=== PATIENT | male | born 1965 | race Caucasian/White ===

== ENCOUNTER 2017-03-17 08:34 | Inpatient (IN) | payer OTHER ==
[2017-03-17] MEDS ORDERED: ONDANSETRON 4 MG/2 ML VIAL IVP ONE (09:16)
[2017-03-17] MEDS ORDERED: NS 500 ML IV ONE ×2 (09:18→11:30)
--- NOTE | 2017-03-17 09:23 | EDPHY ---
H & P Time Seen by Provider: 03/17/17 08:52 HPI/ROS: HPI Confusion, abdomen swollen. 52-year-old male by private vehicle with and son. Patient has a history of non-Hodgkin's lymphoma. This was diagnosed in 1999. He had a stem cell transplant in 2000. He was considered cancer free after that. He has not been on any chemotherapy in some time. He currently takes no prescription medications. On Monday he noticed that his abdomen was swelling. He stated that it felt like a basketball and felt distended. He denied significant pain in the abdomen. He reports that since Monday he has felt progressively more confused. Last night he got up to go to the bathroom and while at the bathroom door felt lightheaded and fell to the ground. He thinks he lost consciousness for a brief amount of time. No associated chest pain, palpitations, headache, shortness of breath with this event. He denies any headache at this time. No neck pain. No numbness or weakness in his extremities. He woke this morning and was jaundiced. This is new as of this morning according to his . His states that he seems more confused and slow to respond to questioning as well. He had an episode of vomiting, nonbilious, nonbloody Monday night. ROS: Constitutional: No fever, no chills. As above. Eyes: No discharge. No changes in vision. ENT: No sore throat. No nasal congestion or rhinorrhea. Respiratory: No cough. No shortness of breath. Cardiac: No chest pain, no palpitations. Gastrointestinal: As above, no diarrhea. Genitourinary: No hematuria. No dysuria or increased frequency with urination. Musculoskeletal: No back pain. No neck pain. No myalgias or arthralgias. Skin: No rashes. As above. Neurological: No headache. No focal weakness or altered sensation. Past medical history: As above. His primary care physician is Dr. Martínez. He has been treated at [facility] in the past. Social history: Nonsmoker. No alcohol. Here with and son. Physical Exam: General Appearance: Alert, jaundice. This patient is responding to questions in full sentences. He is somewhat slow to respond but answers questions appropriately. He generally appears well-hydrated and well-nourished. Eyes: Pupils equal and round no pallor or injection. Scleral icterus present. No lid edema, erythema or injection. ENT, Mouth: Mucous membranes and tongue are are dry. The pharyngeal tissues are unremarkable. No edema or swelling. No asymmetry suggestive of abscess. No erythema or exudates. Respiratory: There are no retractions, lungs are clear to auscultation anteriorly with good air movement bilaterally. Cardiovascular: Regular rate and rhythm. No murmur. Gastrointestinal: Abdomen is distended but soft and without significant tenderness on palpation, no masses, bowel sounds normal. No focal tenderness at McBurney's point. No Napier sign. Neurological: Motor sensory function is grossly intact. Cranial nerves are normal. Gait is normal. Skin: Warm and dry, no rashes. Musculoskeletal: Neck is supple and nontender. Extremities are symmetrical. No lower extremity edema. All joints range without pain or impingement. Psychiatric: No agitation. No depression. Database: EKG: EKG time is 9:20 a.m.; EKG shows a narrow complex sinus tachycardia with a ventricular rate of 107. The DE, QRS, intervals are within normal limits. QT interval prolonged. T-wave inversions noted in the anterior leads. Interpreted by me. Imaging: Chest x-ray AP portable; the cardiac mediastinal silhouette is unremarkable. No evidence of infiltrate or pneumothorax. No acute cardiopulmonary disease process noted. Poor inspiration with bibasilar compressive changes. Interpreted by me. CT head without contrast; negative. Results were discussed with staff radiologist Dr. Dawson Carter. CT abdomen and pelvis with out contrast; significant for markedly fatty liver and severe pancreatitis. Results were discussed with staff radiologist Dr. Dawson Carter. Procedures: Emergency department course: IV placed. He was placed on a monitor. He was started on IV normal saline with 1L to be given over the next hour. Vital signs have been reviewed. He is tachycardic in triage at 1:19 a.m.. Afebrile. Blood pressure is normal. Discussed likely admission with family. 10:55 a.m., discussed case with on-call hospitalist. Patient accepted for admission to Dr. Mcgill. Hospitalist agrees with holding antibiotics in the emergency department. We do not feel that patient's presentation is secondary to infectious etiology at this time. IV fluids continued. 11:00 a.m., discussed results of diagnostic tests with patient and family. All of their questions were answered. Repeat lactate 5.4. Patient admitted in stable condition. Differential Diagnosis: The differential diagnosis on this patient includes but is not limited to malignancy, acute hepatitis, infectious disorder/sepsis, anemia, dehydration. This represents a partial list of diagnoses considered. These considerations are based on history, physical exam, past history, reassessment and diagnostic testing. Smoking Status: Never smoked Constitutional: Initial Vital Signs Temperature (C) 36.5 C 03/17/17 08:40 Heart Rate 119 H 03/17/17 08:40 Respiratory Rate 16 03/17/17 08:40 Blood Pressure 122/74 H 03/17/17 08:40 O2 Sat (%) 96 03/17/17 08:40 O2 Delivery Mode Room Air Allergies/Adverse Reactions: No Known Allergies Allergy (Unverified 10/22/11 11:33) Home Medications: Medication Instructions Recorded Herbals/Supplements -Info Only 1 ea PO DAILY 08/14/09 Temazepam [Restoril 15 MG (*)] 15 mg PO HSPRN PRN 03/17/17 Zolpidem Tartrate [Ambien 5MG (*)] 10 mg PO HS PRN 03/17/17 Medical Decision Making - Data Points Laboratory Results: Laboratory Results 03/17/17 09:07 03/17/17 09:07 Medications Given: Discontinued Medications Sodium Chloride (Ns) 500 mls @ 0 mls/hr IV ONCE ONE PRN Reason: As Directed Stop: 03/17/17 09:19 Last Admin: 03/17/17 09:26 Dose: 500 mls Sodium Chloride (Ns) 500 mls @ 0 mls/hr IV ONCE ONE PRN Reason: Wide Open Stop: 03/17/17 11:31 Last Admin: 03/17/17 11:30 Dose: 500 mls Thiamine HCl 500 mg/ Sodium (Chloride) 105 mls @ 210 mls/hr IV ONCE ONE Stop: 03/17/17 15:29 Last Admin: 03/17/17 15:03 Dose: 105 mls Magnesium Sulfate (Magnesium Sulf 2 Gm (Premix)) 50 mls @ 50 mls/hr IV ONCE ONE Stop: 03/18/17 10:01 Last Admin: 03/18/17 10:40 Dose: 50 mls Calcium Gluconate 2 gm/ Sodium (Chloride) 70 mls @ 140 mls/hr IV ONCE ONE Stop: 03/18/17 09:46 Last Admin: 03/18/17 09:52 Dose: 70 mls Ondansetron HCl (Zofran) 4 mg IVP EDNOW ONE Stop: 03/17/17 09:17 Last Admin: 03/17/17 09:38 Dose: 4 mg Potassium Chloride (Klor-Con) 10 - 40 meq PO ONCE ONE PRN Reason: Protocol Stop: 03/18/17 08:12 Last Admin: 03/18/17 09:56 Dose: 40 meq Departure - Departure Disposition: [facility] Acute Clinical Impression: Dehydration, Altered mental status, Syncope, Jaundice, Thrombocytopenia, Hyperbilirubinemia, Transaminitis, Hyponatremia, Renal failure, Pancreatitis, Metabolic acidosis, Probable hepatic encephalopathy
[2017-03-17 09:25] LABS: ABSOLUTE IMMATURE GRANULOCYTES 0.29 10^3/uL (0.00-0.10); ABSOLUTE NRBC COUNT 0.33 10^3/uL (0-0.01); ADD DIFF? NO; ADD MORPH? YES; ADD SCAN? NO; ATYPICAL LYMPHOCYTE FLAG 0 (0-99); FRAGMENT RBC FLAG 0 (0-99); HEMATOCRIT 38.2 % (40.0-51.0); LEFT SHIFT FLG 40 (0-99); LIPEMIA HEMOLYSIS FLAG 90 (0-99); MEAN CELL HEMOGLOBIN 39.3 pg (27.9-34.1); MEAN CELL HEMOGLOBIN CONCENTR. 36.6 g/dL (32.4-36.7); MEAN CELL VOLUME 107.3 fL (81.5-99.8); MEAN PLATELET VOLUME 12.2 fL (8.7-11.7); PLATELET CLUMPS FLAG 0 (0-99); PLATELET COUNT 91 10^3/uL (150-400); RED BLOOD CELL COUNT 3.56 10^6/uL (4.40-6.38); RED CELL DISTRIBUTION WIDTH 14.6 % (11.5-15.2)
[2017-03-17 09:27] LABS: NRBC-AUTO% 3.4 % (0.0-0.2)
[2017-03-17] MEDS ORDERED: IOPAMIDOL (ISOVUE-300) 100 ML BTL ONE (09:27)
[2017-03-17 09:35] LABS: ALANINE AMINOTRANSFERASE 145 IU/L (21-72); ALBUMIN 4.4 g/dL (3.5-5.0); ALKALINE PHOSPHATASE 167 IU/L (38-126); ANION GAP 28 mEq/L (8-16); ASPARTATE AMINOTRANSFERASE 260 IU/L (17-59); BILIRUBIN,TOTAL 15.3 mg/dL (0.1-1.4); BILIRUBIN-CONJUGATED 13.5 mg/dL (0.0-0.5); BILIRUBIN-UNCONJUGATED 1.8 mg/dL (0.0-1.1); CALCIUM 7.4 mg/dL (8.5-10.4); CARBON DIOXIDE 16 mEq/l (22-31); CHLORIDE 81 mEq/L (97-110); CREATININE 3.3 mg/dL (0.7-1.3); GLOMERULAR FILTRATION RATE 20; GLUCOSE 183 mg/dL (70-100); POTASSIUM 3.2 mEq/L (3.5-5.2); SODIUM 125 mEq/L (134-144); TOTAL PROTEIN 6.3 g/dL (6.3-8.2)
[2017-03-17 09:37] LABS: INR 1.2 (0.83-1.16); PROTIME(PATIENT) 15.2 SEC (12.0-15.0)
[2017-03-17 09:38] LABS: APTT 28.4 SEC (23.0-38.0)
[2017-03-17 09:57] LABS: MACROCYTES 2+; PLATELET ESTIMATE DECREASED (ADEQ); POLYCHROMASIA 1+; TOXIC GRANULATION PRESENT
[2017-03-17] MEDS ORDERED: ONDANSETRON 4 MG/2 ML VIAL IVP PRN (13:13)
[2017-03-17] MEDS ORDERED: HYDROmorphONE/DILAUDID 1 MG/ML SYR IVP PRN (13:18)
--- NOTE | 2017-03-17 13:37 | PDGENHP ---
History and Physical History and Physical: HISTORY AND PHYSICAL CC:Confusion falling and abdominal bloating HISTORY: Mr. Gould who is an alcohol drinker comes in with 2 days of progressive confusion, difficulty with speech, gait instability with a fall at home, and mildly uncomfortable abdominal bloating. He did have 1 episode of vomiting 2 nights ago. There is no fever, there is no diarrhea or constipation. His appetite is decreased. His notes him to be very slow in conversation and have trouble answering certain questions. She also notices speech is slightly slurred or changed in quality. He did not apparently injure himself for this fall. There is no fever, no chest discomfort no cough no leg swelling or leg pain. He does notice that it is hard to take a deep breath but is not painful to take a deep breath. This morning he has noted that he has jaundice and his notices this as well. He has no previous history of abdominal illnesses, renal failure, liver illnesses other than being told he had some slightly abnormal liver blood tests. He has no known history of hepatitis virus infections or jaundice. He has never had known gallstones, has no known family history of pancreatitis. There is no family history of liver disease. He does drink [employer] and he says it takes him around 4 days to drink a half gallon. last alcohol drink approximately [address] ROS: A comprehensive 10 system review revealed no other significant findings PAST MEDICAL HISTORY: Non-Hodgkin's lymphoma was diagnosed in 1999 and treated with chemotherapy followed by stem cell transplant in 2000. He has been in remission since that time. Dr. Michael Winston is his oncologist. Alcoholism FAMILY MEDICAL HISTORY: no family history of pancreas liver or kidney diseases SOCIAL HISTORY: and lives with his and 3 children. His is here with him now and very supportive. Alcohol use is described above MEDICATIONS: rarely takes an Ambien to sleep at night PHYSICAL EXAMINATION: Vital Signs: tachycardia but good blood pressure normal respirations normal oxygen saturation and no fever Front Sight Attacher: sinus rhythm Examination: General: alert, conversant, with some mild disorientation but otherwise good mentation. He is calm and relaxed. no tremor, no hallucinations. His speech is remarkable for a very mild slurring but otherwise articulate. His affect is appropriate. He is very cooperative and interactive for examination and history taking. No focal weakness. Pupils are normal Skin: significant for marked jaundice, warm, dry, no rash HEENT: normal no sign of injury Neck: no mass or jvd Resps: relaxed Lungs: clear breath sounds Heart: regular, no murmur Abdomen: soft, distended, only very mildly tender with no rebound or guarding, +BS, no mass Upper Extremities: normal Lower Extremities: no edema, warm No Bleeding or bruising LABORATORY DATA: lipase greater than 3000 AST 260 ALT 145 Alk Ph 167 Bili 15 with conj 13 Na 125, K 3.2 Plt 91k MCV 107 RADIOLOGY STUDIES: CT scan of abd pelvis, my review of images and interpretation: Severe diffuse pancreatitis associated with diffuse frankie and fluid collections in peritoneal fat of abdomen and pelvis. There is no sign of necrosis or pseudocyst. No ascites. Liver enlarged and with changes c/w either hepatitis or fatty infiltration. 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 Lynn and Dr. Ghosh to assist in the care of this patient -[facility] protocol -Thiamin replacement -DVT prophylaxis as long as his platelets remain in good range; three times daily heparin as he has renal failure - I spent a considerable amount of time with the patient and his at the bedside reviewing the diagnoses and complications there seen and the possible further complications as well as prognosis, as well as our treatment and further evaluations and monitoring that need to occur. I have discussed in detail that this is primarily likely all alcohol-induced and that as this is life threatening and organ threatening, he really needs to have already had his last drink of alcohol in many do everything possible to help him stay away from any alcohol in the future and they both hear that and agree with it. I have reviewed the patient's case in detail with Dr. Lynn and Davina I have reviewed the patient's past medical records as part of this assessment, including previous laboratory data and hospital admission records
[2017-03-17] MEDS ORDERED: THIAMINE HCL 500 MG in NS 100 ML IM ONE (14:00)
[2017-03-17] MEDS: NS 1,000 ML IV SCH ×2 (14:15→20:40)
[2017-03-17] MEDS: HEPARIN 5,000 UNIT/0.5 ML SYR SC SCH ×2 (14:16→20:39)
[2017-03-17] MEDS ORDERED: THIAMINE HCL 500 MG in NS 100 ML IV ONE (15:00)
--- NOTE | 2017-03-17 16:21 | GCON ---
[f rep st] CONSULTATION GASTROENTEROLOGY INPATIENT CONSULTATION DATE OF CONSULTATION: 03/17/2017 CHIEF COMPLAINT: I was kindly requested to see the patient in consultation by Dr. Konrad Mcgill for a chief complaint of jaundice. HISTORY OF PRESENT ILLNESS: He is a 52-year-old, white male who is an alcoholic. Several days ago, he began to complain of abdominal bloating and discomfort. His family also noticed him to be more confused and jaundiced. He had 1 episode of vomiting. He presented to the hospital and was admitted. Today, he is somewhat confused but states his abdominal discomfort and bloating are better. With the above confusion at home, he apparently had a fall, although it did not necessarily seem like he hurt himself. Otherwise, no obvious fever, rigors, chills. PAST MEDICAL HISTORY: 1. As above. 2. Non-Hodgkin lymphoma diagnosed in the year 1999, status post chemotherapy and stem cell transplant. 3. Otherwise noncontributory. MEDICATIONS: Outpatient include just rare use Ambien as needed for insomnia. Inpatient medications include a multivitamin, IV fluids, thiamine, folate. SOCIAL HISTORY: As above. He is . FAMILY HISTORY: Negative for similar jaundice. REVIEW OF SYSTEMS: Positive pertinent review of systems as per my HPI. Otherwise, a complete review of systems is negative. PHYSICAL EXAMINATION: CONSTITUTIONAL: Somewhat ill-appearing gentleman. SKIN : Jaundiced, warm. HEENT: Eyes: Sclerae icteric, pupils equal. Ears, nose, mouth and throat: Oropharynx without masses, moist mucosa. CARDIOVASCULAR: Normal S2, normal PMI. RESPIRATORY: Lungs clear to auscultation and percussion anteriorly. ABDOMEN: Mildly distended, without obvious ascites. EXTREMITIES: Without significant edema. NEUROLOGIC: Grossly nonfocal. Cranial nerves grossly intact. PSYCHIATRIC: Confused, although able to tell me about his pain. MUSCULOSKELETAL: Strength grossly normal throughout, normal sensation. DIAGNOSTIC STUDIES: Include a CT scan of the abdomen and pelvis without IV contrast showing moderate peripancreatic stranding with some fluid, and a fatty liver. Lipase 3522. Prothrombin time 15.2, INR 1.2. Hematocrit 38.2% with MCV of 107. Platelet count 91,000. Sodium 125 with a potassium of 3.2. Creatinine 3.3. Hepatitis A and C negative. Hepatitis B surface antigen negative. Total bilirubin 15.3 with a direct bilirubin of 13.5. AST 260 with an ALT of 145. Ultrasound pending. ASSESSMENT: 1. Jaundice, almost certainly due to alcoholic hepatitis. I suspect he also has some underlying alcoholic cirrhosis. 2. Pancreatitis. As above. 3. Change in mental status, with confusion. Suspect hepatic encephalopathy. 4. Elevated creatinine. Hopefully, much of this is due to prerenal azotemia and dehydration. However, there certainly could be an element of hepato renal syndrome. PLAN: 1. Agree with alki-vites. 2. Will add vitamin K orally for several days. 3. Agree with n.p.o. except medications, sips of water for now, because of his pancreatitis. 4. Recheck lipase in the morning. 5. Lactulose 20 g three times daily; hold for greater than 4 bowel movements in 24 hours. 6. Agree with renal consultation. IV fluids; as per the hospitalist service, renal. 7. Of note, his Maddrey discriminant function returned at 23. Therefore, at least at this point, no indication for oral steroids. However, if Renal feels this might help with his elevated creatinine, etc., certainly okay to start. Thank you for allowing me to help in the management of this patient. /[id number]/MODL and [id number]/MODL, 03/17/17 2381 [facility]ENTER[facility]ty
[2017-03-17 16:43] LABS: CK-MB INTERPRETATION NEGATIVE (NEGATIVE)
[2017-03-17] MEDS: PHYTONADIONE 2.5 MG/2.5 ML ORAL UDL PO SCH (16:44)
[2017-03-17] MEDS: LACTULOSE 20 GM/30 ML UDCUP PO SCH ×2 (16:44→20:39)
[2017-03-17 16:46] LABS: CREATINE KINASE-MB FRACTION 2.17 ng/mL (0-4.55)
[2017-03-17] MEDS: ZOLPIDEM TARTRATE 5 MG TAB PO PRN (20:39)
[2017-03-18 03:57] LABS: COLOR AMBER; LEUKOCYTE ESTERASE,URINE NEGATIVE (NEGATIVE); NITRITE,URINE NEGATIVE (NEGATIVE)
[2017-03-18 04:01] LABS: RANDOM URINE POTASSIUM 66.1 mEq/L (0.5-35.0); RANDOM URINE PROTEIN 69 mg/dL (0-11)
[2017-03-18] MEDS: NS 1,000 ML IV SCH ×2 (04:11→09:52)
[2017-03-18 04:25] LABS: GRANULAR CASTS 25-50 /lpf (0-1); HYALINE CASTS 25-50 /lpf (0-1); MUCUS 3+ /lpf (NONE-1+); WBC,URINE 50-182 /hpf (0-3)
[2017-03-18] MEDS: HEPARIN 5,000 UNIT/0.5 ML SYR SC SCH ×3 (05:11→20:17)
[2017-03-18 06:06] LABS: ALANINE AMINOTRANSFERASE 112 IU/L (21-72); ALBUMIN 3.3 g/dL (3.5-5.0); ALKALINE PHOSPHATASE 117 IU/L (38-126); ANION GAP 16 mEq/L (8-16); ASPARTATE AMINOTRANSFERASE 183 IU/L (17-59); BILIRUBIN,TOTAL 13.5 mg/dL (0.1-1.4); BILIRUBIN-CONJUGATED 12.1 mg/dL (0.0-0.5); BILIRUBIN-UNCONJUGATED 1.4 mg/dL (0.0-1.1); CARBON DIOXIDE 20 mEq/l (22-31); CHLORIDE 93 mEq/L (97-110); CREATININE 3.9 mg/dL (0.7-1.3); GLOMERULAR FILTRATION RATE 16; GLUCOSE 127 mg/dL (70-100); POTASSIUM 2.8 mEq/L (3.5-5.2); SODIUM 129 mEq/L (134-144); TOTAL PROTEIN 4.9 g/dL (6.3-8.2)
[2017-03-18 06:17] LABS: ABSOLUTE NRBC COUNT 0.13 10^3/uL (0-0.01); ADD DIFF? YES; ATYPICAL LYMPHOCYTE FLAG 0 (0-99); FRAGMENT RBC FLAG 0 (0-99); HEMATOCRIT 31.4 % (40.0-51.0); HEMOGLOBIN 11.6 g/dL (13.7-17.5); LIPEMIA HEMOLYSIS FLAG 90 (0-99); MEAN CELL HEMOGLOBIN 39.9 pg (27.9-34.1); MEAN CELL HEMOGLOBIN CONCENTR. 36.9 g/dL (32.4-36.7); MEAN CELL VOLUME 107.9 fL (81.5-99.8); MEAN PLATELET VOLUME 11.9 fL (8.7-11.7); PLATELET CLUMPS FLAG 10 (0-99); PLATELET COUNT 73 10^3/uL (150-400); RED BLOOD CELL COUNT 2.91 10^6/uL (4.40-6.38); RED CELL DISTRIBUTION WIDTH 15.6 % (11.5-15.2); TRIGLYCERIDE 708 mg/dL (40-150)
[2017-03-18 06:19] LABS: CALCIUM 5.3 mg/dL (8.5-10.4); MAGNESIUM 0.9 mg/dL (1.6-2.3)
[2017-03-18 06:21] LABS: ADD MORPH? NO; ADD SCAN? NO; LEFT SHIFT FLG 120 (0-99); NRBC-AUTO% 2.2 % (0.0-0.2)
[2017-03-18 07:35] LABS: MACROCYTES 1+; PLATELET ESTIMATE DECREASED (ADEQ); STOMATOCYTES 1+
[2017-03-18] MEDS ORDERED: PROTOCOL CALCIUM 1 DOSE IV PRN (07:55)
[2017-03-18] MEDS ORDERED: PROTOCOL POTASSIUM 1 DOSE MISC PRN (07:55)
[2017-03-18] MEDS ORDERED: PROTOCOL MAGNESIUM 1 DOSE IV PRN (07:55)
[2017-03-18] MEDS ORDERED: POTASSIUM CL 10 MEQ TAB PO ONE ×3 (08:11→20:01)
[2017-03-18] MEDS ORDERED: MAGNESIUM SULF 2 GM/WATER 50 ML IV ONE (09:02)
[2017-03-18] MEDS ORDERED: CALCIUM GLUCONATE 2 GM in NS 50 ML IV ONE (09:17)
[2017-03-18 09:24] LABS: POTASSIUM 2.8 mEq/L (3.5-5.2)
[2017-03-18] MEDS: LACTULOSE 20 GM/30 ML UDCUP PO SCH ×3 (09:56→20:17)
[2017-03-18] MEDS: FOLIC ACID 1 MG TAB PO SCH (09:56)
[2017-03-18] MEDS: MULTIVITAMINS 1 EACH TAB PO SCH (09:56)
[2017-03-18] MEDS: PHYTONADIONE 2.5 MG/2.5 ML ORAL UDL PO SCH (10:00)
[2017-03-18] MEDS: LORazepam 1 MG TAB PO PRN ×3 (10:43→20:13)
--- NOTE | 2017-03-18 11:48 | PDGENHP ---
History and Physical - Chief Complaint LEO - History of Present Illness Mr. Gould is a 52 yo M with h/o alcoholism and Non-Hodgkin's lymphoma who was admitted yesterday with pancreatitis, hepatitis and LEO. Pt states that he has been feeling poorly for about a week. He noticed that his gait was wobbly and this his abdomen was distended. noted that he seemed to be thinking and responding more slowly and had some slurred speech, although pt denies any confusion. He was also looking more jaundiced. Pt notes that he drinks alcohol , he admits to 3-4 drinks daily, last was on Monday. CT scan shows pancreatitis and hepatomegaly, US also with hepatomegaly. Cr on presentation 3.3 with baseline unknown but presumed relatively normal. Renal US with no hydronephrosis and normal appearing kidneys, although R<L by 2.2cm. History Information - Allergies/Home Medication List Allergies/Adverse Reactions: No Known Allergies Allergy (Unverified 10/22/11 11:33) Home Medications: Herbals/Supplements -Info Only 1 ea PO DAILY 08/14/09 [Last Taken 10/22/11 11:33 ] Temazepam [Restoril 15 MG (*)] 15 mg PO HSPRN PRN 03/17/17 [Last Taken Unknown] Zolpidem Tartrate [Ambien 5MG (*)] 10 mg PO HS PRN 03/17/17 [Last Taken Unknown] I have personally reviewed and updated: medical history Past Medical History: Non-Hodgkin's lymphoma - Surgical History Additional surgical history: stem cell transplant 2000 - Family History Additional family history: no kidney disease - Social History Smoking Status: Never smoked Alcohol Use: Heavy Review of Systems ROS: 10pt was reviewed & negative except for what was stated in HPI & below Physical Exam Temp Pulse Resp BP Pulse Ox 36.5 C 102 H 16 113/68 91 L 03/18/17 06:32 03/18/17 06:32 03/18/17 06:32 03/18/17 06:32 03/18/17 06:32 Constitutional: no apparent distress, not in pain Eyes: PERRL, EOMI, icteric sclera Ears, Nose, Mouth, Throat: moist mucous membranes, hearing normal Cardiovascular: regular rate and rhythym, pulses symmetric bilaterally, No edema Peripheral Pulses: 2+: dorsalis-pedis (R), dorsalis-pedis (L) Respiratory: no respiratory distress, no rales or rhonchi, clear to auscultation Gastrointestinal: normoactive bowel sounds, soft, non-tender abdomen, distension Skin: warm, other (jaundiced) Musculoskeletal: no muscle tenderness, normal joint ROM Neurologic: AAOx3, CN II-XII Intact, No asterixes Psychiatric: interacting appropriately, not anxious, other (slightly confused) Lab Data & Imaging Review 03/18/17 05:40 03/18/17 08:46 WBC 5.82 10^3/uL (3.80-9.50) 03/18/17 05:40 RBC 2.91 10^6/uL (4.40-6.38) L 03/18/17 05:40 Hgb 11.6 g/dL (13.7-17.5) L 03/18/17 05:40 Hct 31.4 % (40.0-51.0) L 03/18/17 05:40 MCV 107.9 fL (81.5-99.8) H 03/18/17 05:40 MCH 39.9 pg (27.9-34.1) H 03/18/17 05:40 MCHC 36.9 g/dL (32.4-36.7) H 03/18/17 05:40 RDW 15.6 % (11.5-15.2) H 03/18/17 05:40 Plt Count 73 10^3/uL (150-400) L 03/18/17 05:40 MPV 11.9 fL (8.7-11.7) H 03/18/17 05:40 Neut % (Auto) Not Reported 03/18/17 05:40 Lymph % (Auto) Not Reported 03/18/17 05:40 [place] % (Auto) Not Reported 03/18/17 05:40 Eos % (Auto) Not Reported 03/18/17 05:40 Baso % (Auto) Not Reported 03/18/17 05:40 Nucleat RBC Rel Count 2.2 % (0.0-0.2) H 03/18/17 05:40 Absolute Neuts (auto) Not Reported 03/18/17 05:40 Absolute Lymphs (auto) Not Reported 03/18/17 05:40 Absolute Monos (auto) Not Reported 03/18/17 05:40 Absolute Eos (auto) Not Reported 03/18/17 05:40 Absolute Basos (auto) Not Reported 03/18/17 05:40 Absolute Nucleated RBC 0.13 10^3/uL (0-0.01) H 03/18/17 05:40 Immature Gran % Not Reported 03/18/17 05:40 Seg Neutrophils % 57 % 03/18/17 05:40 Band Neutrophils % 9 % 03/18/17 05:40 Lymphocytes % 23 % 03/18/17 05:40 Monocytes % 10 % 03/18/17 05:40 Basophils % 1 % 03/17/17 09:07 Metamyelocytes % 1 % 03/18/17 05:40 Immature Gran # Not Reported 03/18/17 05:40 Absolute Seg Neuts 3.32 10^/uL (1.70-6.50) 03/18/17 05:40 Absolute Band Neuts 0.52 10^3/uL (0.00-0.70) 03/18/17 05:40 Absolute Lymphocytes 1.34 10^3/uL (1.00-3.00) 03/18/17 05:40 Absolute Monocytes 0.58 10^3/uL (0.30-0.80) 03/18/17 05:40 Absolute Basophils 0.10 10^3/uL (0.02-0.10) 03/17/17 09:07 Absolute Metamyelocyte 0.06 10^3/mL (0.00-0.00) H 03/18/17 05:40 Nucleated RBCs 5 /100 WBC (0-0) H 03/18/17 05:40 Toxic Granulation PRESENT H 03/17/17 09:07 Platelet Estimate DECREASED (ADEQ) L 03/18/17 05:40 Polychromasia 1+ H 03/17/17 09:07 Basophilic Stippling 1+ H 03/18/17 05:40 Oval Macrocytes 1+ H 03/18/17 05:40 Stomatocytes 1+ H 03/18/17 05:40 Smear Review By Leonardo WOLF MD 03/18/17 05:40 PT 15.2 SEC (12.0-15.0) H 03/17/17 09:07 INR 1.20 (0.83-1.16) H 03/17/17 09:07 APTT 28.4 SEC (23.0-38.0) 03/17/17 09:07 VBG Lactic Acid 5.4 mmol/L (0.7-2.1) H 03/17/17 11:32 Sodium 129 mEq/L (134-144) L 03/18/17 05:40 Potassium 2.8 mEq/L (3.5-5.2) L 03/18/17 08:46 Chloride 93 mEq/L (97-110) L D 03/18/17 05:40 Carbon Dioxide 20 mEq/l (22-31) L 03/18/17 05:40 Anion Gap 16 mEq/L (8-16) 03/18/17 05:40 BUN 28 mg/dL (7-23) H 03/18/17 05:40 Creatinine 3.9 mg/dL (0.7-1.3) H 03/18/17 05:40 Estimated GFR 16 03/18/17 05:40 Glucose 127 mg/dL (70-100) H 03/18/17 05:40 Calcium 5.3 mg/dL (8.5-10.4) L* D 03/18/17 05:40 Ionized Calcium 0.70 MMOL/L (1.12-1.30) L* 03/18/17 08:46 Phosphorus < 0.5 mg/dL (2.5-4.5) L 03/18/17 05:40 Magnesium 1.0 mg/dL (1.6-2.3) L 03/18/17 08:46 Total Bilirubin 13.5 mg/dL (0.1-1.4) H 03/18/17 05:40 Conjugated Bilirubin 12.1 mg/dL (0.0-0.5) H 03/18/17 05:40 Unconjugated Bilirubin 1.4 mg/dL (0.0-1.1) H 03/18/17 05:40 AST 183 IU/L (17-59) H 03/18/17 05:40 ALT 112 IU/L (21-72) H 03/18/17 05:40 Alkaline Phosphatase 117 IU/L (38-126) 03/18/17 05:40 Ammonia 15.0 uMOL/L (9.0-30.0) 03/18/17 05:40 Creatine Kinase 231 IU/L (0-224) H 03/17/17 15:06 CK-MB (CK-2) Fraction 2.17 ng/mL (0-4.55) 03/17/17 15:06 CK-MB (CK-2) % 0.9 % (0.0-4.0) 03/17/17 15:06 Creatine Kinase Interp NEGATIVE (NEGATIVE) 03/17/17 15:06 Total Protein 4.9 g/dL (6.3-8.2) L D 03/18/17 05:40 Albumin 3.3 g/dL (3.5-5.0) L 03/18/17 05:40 Triglycerides 708 mg/dL (40-150) H 03/18/17 05:40 Lipase 2574.0 IU/L (23-300) H 03/17/17 15:06 Urine Color CHRISTIE 03/18/17 03:34 Urine Appearance TURBID 03/18/17 03:34 Urine pH 5.0 (5.0-7.5) 03/18/17 03:34 Ur Specific [place] 1.020 (1.002-1.030) 03/18/17 03:34 Urine Protein 2+ (NEGATIVE) H 03/18/17 03:34 Urine Ketones NEGATIVE (NEGATIVE) 03/18/17 03:34 Urine Blood 2+ (NEGATIVE) H 03/18/17 03:34 Urine Nitrate NEGATIVE (NEGATIVE) 03/18/17 03:34 Urine Bilirubin POSITIVE (NEGATIVE) H 03/18/17 03:34 Urine Urobilinogen 2.0 EU (0.2-1.0) H 03/18/17 03:34 Ur Leukocyte Esterase NEGATIVE (NEGATIVE) 03/18/17 03:34 Urine RBC 3-5 /hpf (0-3) H 03/18/17 03:34 Urine WBC 50-182 /hpf (0-3) H 03/18/17 03:34 Ur Epithelial Cells 1+ /lpf (NONE-1+) 03/18/17 03:34 Hyaline Casts 25-50 /lpf (0-1) H 03/18/17 03:34 Granular Casts 25-50 /lpf (0-1) H 03/18/17 03:34 Urine Mucus 3+ /lpf (NONE-1+) H 03/18/17 03:34 Ur Random Creatinine 276.6 mg/dL 03/18/17 03:34 U Random Total Protein 69 mg/dL (0-11) H 03/18/17 03:34 Ur Random Sodium 17 mEq/L (30-90) L 03/18/17 03:34 Ur Random Potassium 66.1 mEq/L (0.5-35.0) H 03/18/17 03:34 Urine Glucose 1+ (NEGATIVE) H 03/18/17 03:34 Hepatitis A IgM Ab NEGATIVE (NEGATIVE) 03/17/17 09:07 Hep Bs Antigen NEGATIVE (NEGATIVE) 03/17/17 09:07 Hepatitis C Antibody NEGATIVE (NEGATIVE) 03/17/17 09:07 Assessment & Plan Assessment: Assessment/Plan: LEO: likely multifactorial, could have prerenal injury but not yet improved with IVFs, likely has ATN with his hypotension, pancreatitis and hepatitis, could have some component of hepatorenal syndrome. - No emergent need for HD, but will continue to monitor. If he becomes anuric or continues to signficantly worsen, may require HD in the next few days. - Continue IVFs. - Avoid hypotension. - Avoid MOM, morphine, demerol, NSAIDS, contrast, amingolycosides, fleets, and other nephrotoxins. Hypokalemia: K 2.8 this am, already got KCl 40meq x1. - Will monitor closely and frequently today and continue to replace as needed. - Need to replace cautiously given his renal failure. Hypocalcemia: got 2g calcium this am, will continue to monitor. Hypomagnesemia: got 2g mag sulfate this am, will continue to monitor. Hypophosphatemia: will replace and continue to monitor. Metabolic acidosis: pt with lactic acidosis, getting IVFs, will continue to monitor. Thank you for the interesting consult. Nephrology will continue to follow, please call if you have any additional questions or concerns.
--- NOTE | 2017-03-18 12:41 | SOAPPROG ---
SOAP Progress Note Assessment/Plan: Assessment:Plan: 1) Alcoholic Hepatitis - recheck Protime today, Sherriey Discrim function was < 32 and bile decreased, so as long as protime hasn't increased, he wont need any steroids. Will need program and lifelong abstinence 2) Encephalopathy - noted to be confused at home, today with no asterixis and a+ ox3, will stop lactulose as will cause diarrhea. If needs tx would use Xifaxan 550 mg BID 3) Pancreatitis - less pain today but still present, NPO for now - prob start clears tomorrow 4) renal/lytes - as per renal and hospitalists, 03/18/17 12:37 Subjective: cc- alcoholic hepatitis, pancreatitis, ARF woke pt up from sleep he is alert and oriented x 3 wants po intake but still with pain Objective: Vital Signs Temp Pulse Resp BP Pulse Ox 36.5 C 102 H 16 113/68 91 L 03/18/17 06:32 03/18/17 06:32 03/18/17 06:32 03/18/17 06:32 03/18/17 06:32 Laboratory Results 03/18/17 05:40 03/18/17 08:46 03/17/17 03/18/17 03/19/17 05:59 05:59 05:59 Intake Total 1000 Balance 1000 PT 15.2 SEC (12.0-15.0) H 03/17/17 09:07 INR 1.20 (0.83-1.16) H 03/17/17 09:07 A+Ox3 CTA S1S2 +BS, soft tender epi and over enlarged liver, no r/g Laboratory Tests 03/17/17 03/17/17 03/17/17 09:07 09:07 09:07 Creatinine 3.3 H Total Bilirubin 15.3 H AST 260 H ALT 145 H Alkaline Phosphatase 167 H Lipase 3522.0 H Hepatitis A IgM Ab NEGATIVE Hep Bs Antigen NEGATIVE Hep Bs Antibody Pending Hep Bs Antibody, Quant Pending Hepatitis C Antibody NEGATIVE 03/17/17 03/18/17 15:06 05:40 Creatinine 3.9 H Total Bilirubin 13.5 H AST 183 H ALT 112 H Alkaline Phosphatase 117 Lipase 2574.0 H Hepatitis A IgM Ab Hep Bs Antigen Hep Bs Antibody Hep Bs Antibody, Quant Hepatitis C Antibody ICD10 Worksheet Patient Problems: Problems Problem Status Onset Altered mental status Acute Dehydration Acute Hyperbilirubinemia Acute Hyponatremia Acute Jaundice Acute Pancreatitis Acute Renal failure Acute Syncope Acute Thrombocytopenia Acute Transaminitis Acute
[2017-03-18] MEDS: POTASSIUM/SODIUM PHOSPHATE 1 PKT PO SCH ×2 (14:41→18:28)
[2017-03-18 16:14] LABS: ALBUMIN 3.5 g/dL (3.5-5.0); ANION GAP 15 mEq/L (8-16); CARBON DIOXIDE 20 mEq/l (22-31); CHLORIDE 96 mEq/L (97-110); CREATININE 3.7 mg/dL (0.7-1.3); GLOMERULAR FILTRATION RATE 17; GLUCOSE 126 mg/dL (70-100); POTASSIUM 3.3 mEq/L (3.5-5.2); SODIUM 131 mEq/L (134-144)
[2017-03-18 16:18] LABS: HEPATITIS Bs Ab QUANT <5.0 mIU/mL
[2017-03-18 16:20] LABS: INR 1.11 (0.83-1.16); PROTIME(PATIENT) 14.2 SEC (12.0-15.0)
[2017-03-18 16:21] LABS: CALCIUM 5.8 mg/dL (8.5-10.4)
--- NOTE | 2017-03-18 17:49 | HOSPPROG ---
Hospitalist Progress Note Assessment/Plan: DIAGNOSES: -SEVERE ACUTE PANCREATITIS, ALMOST CERTAINLY ALCOHOL INDUCED -ACUTE HEPATIC DYSFUNCTION, LIKELY PRIMARILY ALCOHOLIC HEPATITIS BUT PROBABLY ALSO HAS CIRRHOSIS -ACUTE RENAL FAILURE DUE TO ABOVE, IN SETTING OF GOOD BLOOD PRESSURES -ALCOHOLISM -ACUTE ENCEPHALOPATHY IS LIKELY HEPATIC BUT COULD BE NUTRITIONAL WELL - SEVERE ELECTROLYTE DEFICIENCIES INCLUDING CALCIUM, MAGNESIUM, POTASSIUM -SUSPECT THIAMINE DEFICIENCY -COAGULOPATHY AND THROMBOCYTOPENIA FROM ALCOHOL AND LIVER DISEASE -POTENTIAL FOR ALCOHOL WITHDRAWAL ALTHOUGH AT 72 HOURS OUT FROM A STRENGTH THIS IS PROBABLY UNLIKELY PLANS: - continue IV hydration and NPO -Continue electrolyte replace-ments -Thiamin and other vitamin replacement -Follow inflammatory markers and function of liver, kidneys, pancreas closely -Continue CIWA protocol -DVT prophylaxis - I agree that this moment there are no indication for steroids for his liver but will follow his recovery closely and reassess I reviewed the case with Dr. Roxana Lynn today SUBJECTIVE: Feels somewhat better today with decrease in abdominal distention, but still weak and sore No nausea, is getting a little bit hungrier No chills or sweats, no shortness of breath OBJECTIVE Vitals reviewed: blood pressures are lower but not in a dangerous range, otherwise stable with no fever Exam: alert oriented speech is not slurred today and his overall mentation level is better. skin warm dry But still with marked jaundice resps not labored lungs clear BSs heart regular abd soft a bit less distended, and now nontender, bowel sounds present limbs warm, no edema iv site ok laboratory data remarkable for severe hypocalcemia, along with hypo magnesium and hypokalemia typical of his alcoholism Renal function a little bit worse today with creatinine of 3.9 and 3.7 Bilirubin down to 13 Hepatic enzymes slightly decreased as well Urinalysis showing white blood cells suggestive of probably ATN versus other inflammatory, doubt infection Objective: Vital Signs Temp Pulse Resp BP Pulse Ox 36.6 C 97 18 98/64 L 93 03/18/17 12:00 03/18/17 12:00 03/18/17 12:00 03/18/17 12:00 03/18/17 12:00 Laboratory Results 03/18/17 05:40 03/18/17 15:46 03/17/17 03/18/17 03/19/17 06:59 06:59 06:59 Intake Total 1000 Balance 1000 PT 14.2 SEC (12.0-15.0) 03/18/17 15:46 INR 1.11 (0.83-1.16) 03/18/17 15:46 ICD10 Worksheet Patient Problems: Problems Problem Status Onset Altered mental status Acute Dehydration Acute Hyperbilirubinemia Acute Hyponatremia Acute Jaundice Acute Metabolic acidosis Acute Pancreatitis Acute Renal failure Acute Syncope Acute Thrombocytopenia Acute Transaminitis Acute
[2017-03-18] MEDS ORDERED: POTASSIUM CL 20 MEQ TAB PO ONE (19:23)
[2017-03-18] MEDS ORDERED: CALCIUM GLUCONATE 2 GM in D5W 50 ML IV ONE (19:23)
[2017-03-18 19:46] LABS: ALBUMIN 3.3 g/dL (3.5-5.0); ANION GAP 16 mEq/L (8-16); CARBON DIOXIDE 18 mEq/l (22-31); CHLORIDE 97 mEq/L (97-110); CREATININE 3.3 mg/dL (0.7-1.3); GLOMERULAR FILTRATION RATE 20; GLUCOSE 120 mg/dL (70-100); POTASSIUM 3.1 mEq/L (3.5-5.2); SODIUM 131 mEq/L (134-144)
[2017-03-18 19:48] LABS: CALCIUM 5.6 mg/dL (8.5-10.4)
[2017-03-19] MEDS: POTASSIUM/SODIUM PHOSPHATE 1 PKT PO SCH ×2 (00:08→05:58)
[2017-03-19] MEDS: ZOLPIDEM TARTRATE 5 MG TAB PO PRN ×2 (00:10→21:10)
[2017-03-19 00:39] LABS: ALBUMIN 3.4 g/dL (3.5-5.0); ANION GAP 15 mEq/L (8-16); CARBON DIOXIDE 20 mEq/l (22-31); CHLORIDE 99 mEq/L (97-110); GLOMERULAR FILTRATION RATE 22; GLUCOSE 123 mg/dL (70-100); POTASSIUM 3.1 mEq/L (3.5-5.2); SODIUM 134 mEq/L (134-144)
[2017-03-19 00:40] LABS: CALCIUM 5.9 mg/dL (8.5-10.4)
[2017-03-19] MEDS ORDERED: CALCIUM GLUCONATE 50 ML IV ONE (01:43)
[2017-03-19] MEDS: NS 1,000 ML IV SCH ×2 (02:14→13:14)
[2017-03-19] MEDS: LORazepam 1 MG TAB PO PRN ×5 (03:20→21:10)
[2017-03-19 05:53] LABS: ADD DIFF? YES; ADD SCAN? NO; ATYPICAL LYMPHOCYTE FLAG 0 (0-99); FRAGMENT RBC FLAG 0 (0-99); HEMATOCRIT 29.5 % (40.0-51.0); HEMOGLOBIN 10.8 g/dL (13.7-17.5); LEFT SHIFT FLG 80 (0-99); LIPEMIA HEMOLYSIS FLAG 90 (0-99); MEAN CELL HEMOGLOBIN 39.9 pg (27.9-34.1); MEAN CELL HEMOGLOBIN CONCENTR. 36.6 g/dL (32.4-36.7); MEAN CELL VOLUME 108.9 fL (81.5-99.8); MEAN PLATELET VOLUME 10.7 fL (8.7-11.7); PLATELET CLUMPS FLAG 0 (0-99); PLATELET COUNT 83 10^3/uL (150-400); RED BLOOD CELL COUNT 2.71 10^6/uL (4.40-6.38); RED CELL DISTRIBUTION WIDTH 16.2 % (11.5-15.2)
[2017-03-19 05:54] LABS: ADD MORPH? NO; NRBC-AUTO% 1.7 % (0.0-0.2)
[2017-03-19] MEDS: HEPARIN 5,000 UNIT/0.5 ML SYR SC SCH ×3 (05:58→21:10)
[2017-03-19 06:10] LABS: ALANINE AMINOTRANSFERASE 110 IU/L (21-72); ALBUMIN 3.5 g/dL (3.5-5.0); ALKALINE PHOSPHATASE 140 IU/L (38-126); ANION GAP 16 mEq/L (8-16); ASPARTATE AMINOTRANSFERASE 216 IU/L (17-59); BILIRUBIN-CONJUGATED 14.5 mg/dL (0.0-0.5); BILIRUBIN-UNCONJUGATED 1.5 mg/dL (0.0-1.1); CARBON DIOXIDE 19 mEq/l (22-31); CHLORIDE 101 mEq/L (97-110); CREATININE 2.6 mg/dL (0.7-1.3); GLOMERULAR FILTRATION RATE 26; GLUCOSE 122 mg/dL (70-100); MAGNESIUM 1.5 mg/dL (1.6-2.3); POTASSIUM 3.1 mEq/L (3.5-5.2); SODIUM 136 mEq/L (134-144); SPECIMEN ICTERUS 8; TOTAL PROTEIN 5.2 g/dL (6.3-8.2)
[2017-03-19 06:28] LABS: CALCIUM 5.9 mg/dL (8.5-10.4)
[2017-03-19 06:39] LABS: MACROCYTES 1+; STOMATOCYTES 1+
[2017-03-19 06:40] LABS: PLATELET ESTIMATE DECREASED (ADEQ)
[2017-03-19] MEDS ORDERED: POTASSIUM CL 10 MEQ TAB PO ONE ×2 (08:20→19:41)
[2017-03-19] MEDS ORDERED: CALCIUM GLUCONATE 2 GM in NS 50 ML IV ONE (08:21)
[2017-03-19] MEDS: MULTIVITAMINS 1 EACH TAB PO SCH (08:52)
[2017-03-19] MEDS: LACTULOSE 20 GM/30 ML UDCUP PO SCH ×3 (08:52→21:12)
[2017-03-19] MEDS: FOLIC ACID 1 MG TAB PO SCH (08:52)
[2017-03-19] MEDS: PHYTONADIONE 2.5 MG/2.5 ML ORAL UDL PO SCH (08:54)
[2017-03-19] MEDS ORDERED: MAGNESIUM SULF 1 GM/DEXTROSE 100 ML IV ONE (10:41)
--- NOTE | 2017-03-19 10:45 | SOAPPROG ---
SOAP Progress Note Assessment/Plan: Assessment/Plan: LEO: likely multifactorial, could have prerenal injury, may have some component of hepatorenal syndrome but less likely, more likely had some ATN in the setting of hypotension, pancreatitis, and hepatitis. Cr now improving, down to 2.6 from peak of 3.7 yesterday. - No emergent need for HD. - Continue IVFs. - Avoid hypotension, MOM, morphine, demerol, NSAIDs, contrast, aminoglycosides , fleets, and other nephrotoxins. - Will continue to monitor. Hypokalemia: K 3.1, got KCl 40meq x1 this am. Will give additional replacement this afternoon and continue to monitor. Hypophos: will give IV KPhos today and continue to monitor. Hypocalcemia: pt got another 2g calcium this am, will contnue to monitor. Hypomagnesemia: improved to 1.5, will give 1g mag sulfate today and continue to monitor. Subjective: No acute events overnight. Pt states he is feeling ok, still bloated, did not sleep well. Objective: Vital Signs Temp Pulse Resp BP Pulse Ox 36.9 C 99 18 99/69 L 95 03/19/17 09:03 03/19/17 09:03 03/19/17 09:03 03/19/17 09:03 03/19/17 09:03 Laboratory Results 03/19/17 05:41 03/19/17 05:41 03/18/17 03/19/17 03/20/17 05:59 05:59 05:59 Intake Total 1000 Output Total 5 Balance 1000 -5 PT 14.2 SEC (12.0-15.0) 03/18/17 15:46 INR 1.11 (0.83-1.16) 03/18/17 15:46 General: awake, alert, no acute distress Eyes; EOMI, PERRL, sclerae icteric OP: Clear CV: RRR Resp: nonlabored respirations on RA Abd; Soft, distended, nontender Ext: no edema Neuro: CN II-XII grossly intact Skin: jaundiced Psych: slightly confused ICD10 Worksheet Patient Problems: Problems Problem Status Onset Altered mental status Acute Dehydration Acute Hyperbilirubinemia Acute Hyponatremia Acute Jaundice Acute Metabolic acidosis Acute Pancreatitis Acute Renal failure Acute Syncope Acute Thrombocytopenia Acute Transaminitis Acute
--- NOTE | 2017-03-19 11:44 | SOAPPROG ---
SOBENJY Progress Note Assessment/Plan: Assessment:Plan: 1) Alcoholic Hepatitis - recheck Protime today, Maddrey Discrim function was < 32 and bile decreased, so as long as protime hasn't increased, he wont need any steroids. Will need program and lifelong abstinence 2) Encephalopathy - noted to be confused at home, today with no asterixis and a+ ox3, will stop lactulose as will cause diarrhea. If needs tx would use Xifaxan 550 mg BID 3) Pancreatitis - less pain today but still present, NPO for now - prob start clears tomorrow 4) renal/lytes - as per renal and hospitalists, 03/18/17 12:37 03/19/17 11:41 as above 1) protime normal, bili back up but MDF < 32 = no steroids 2) HE - A+Ox3, no asterixis, if becomes confused, start Xifaxan 3) pancreatitis - advance to clears 4) renal/lytes - as per renal/hospitalists will follow Subjective: cc- alc hep, ARF, alc pancreatitis was walking the floor with walker and help this am, did one lap not confused, states abdo feels better, tolerating ice chips Objective: Vital Signs Temp Pulse Resp BP Pulse Ox 36.8 C 107 H 18 94/59 L 94 03/19/17 11:12 03/19/17 11:12 03/19/17 11:12 03/19/17 11:12 03/19/17 11:12 Laboratory Results 03/19/17 05:41 03/19/17 05:41 03/18/17 03/19/17 03/20/17 05:59 05:59 05:59 Intake Total 1000 Output Total 5 Balance 1000 -5 PT 14.2 SEC (12.0-15.0) 03/18/17 15:46 INR 1.11 (0.83-1.16) 03/18/17 15:46 A+OX3 CTA S1S2, +BS, soft RUQ spinning machine tender over liver, less epi pain no r/g ICD10 Worksheet Patient Problems: Problems Problem Status Onset Altered mental status Acute Dehydration Acute Hyperbilirubinemia Acute Hyponatremia Acute Jaundice Acute Metabolic acidosis Acute Pancreatitis Acute Renal failure Acute Syncope Acute Thrombocytopenia Acute Transaminitis Acute
[2017-03-19 12:06] LABS: COLOR AMBER; LEUKOCYTE ESTERASE,URINE NEGATIVE (NEGATIVE); NITRITE,URINE NEGATIVE (NEGATIVE)
[2017-03-19 12:16] LABS: AMORPHOUS PRESENT /hpf (NONE-1+)
[2017-03-19] MEDS: K PHOS 20 MMOL in D5W 250 ML IV SCH ×2 (12:29→21:10)
[2017-03-19] MEDS ORDERED: POTASSIUM CL 20 MEQ TAB PO ONE (16:00)
--- NOTE | 2017-03-19 17:24 | HOSPPROG ---
Hospitalist Progress Note Assessment/Plan: DIAGNOSES: -SEVERE ACUTE PANCREATITIS, ALMOST CERTAINLY ALCOHOL INDUCED -ACUTE HEPATIC DYSFUNCTION, LIKELY PRIMARILY ALCOHOLIC HEPATITIS BUT PROBABLY ALSO HAS CIRRHOSIS -ACUTE RENAL FAILURE DUE TO ABOVE, IN SETTING OF GOOD BLOOD PRESSURES -ALCOHOLISM -ACUTE ENCEPHALOPATHY IS LIKELY HEPATIC BUT COULD BE NUTRITIONAL WELL - SEVERE ELECTROLYTE DEFICIENCIES INCLUDING CALCIUM, MAGNESIUM, POTASSIUM -SUSPECT THIAMINE DEFICIENCY -COAGULOPATHY AND THROMBOCYTOPENIA FROM ALCOHOL AND LIVER DISEASE -POTENTIAL FOR ALCOHOL WITHDRAWAL ALTHOUGH AT 72 HOURS OUT FROM A STRENGTH THIS IS PROBABLY UNLIKELY PLANS: -continue IV hydration and NPO -Continue electrolyte replacements -Thiamin and other vitamin replacement -Follow inflammatory markers and function of liver, kidneys, pancreas closely -Continue CIKY protocol -DVT prophylaxis - still there is no indication for steroids for his liver but will follow his recovery closely and reassess over time SUBJECTIVE: still generally sore, weak, tired No fevers chills sweats or shortness of breath No abdominal pain OBJECTIVE Vitals reviewed: blood pressures soft but OK for now; otherwise stable without fever the nurses have found him mildly anxious at times and tremulous and have scored him at a size 5 on CIWA so has gotten occasional small doses of Ativan Exam: alert oriented Currently relaxed and without tremor, not confused skin warm dry but still with marked jaundice resps not labored lungs clear BSs heart regular abd soft still somewhat distended, nontender, bowel sounds present limbs warm, no edema iv site ok laboratory data remarkable for severe hypocalcemia, along with hypo magnesium and hypokalemia typical of his alcoholism Renal function improved today but still off greater than 2 creatinine Bilirubin up minimally at 14 Hepatic enzymes slightly higher electrolytes still low but improving with replacements Objective: Vital Signs Temp Pulse Resp BP Pulse Ox 36.9 C 98 18 110/68 93 03/19/17 15:40 03/19/17 15:40 03/19/17 15:40 03/19/17 15:40 03/19/17 15:40 Laboratory Results 03/19/17 05:41 03/19/17 05:41 03/18/17 03/19/17 03/20/17 06:59 06:59 06:59 Intake Total 1000 Output Total 5 Balance 1000 -5 PT 14.2 SEC (12.0-15.0) 03/18/17 15:46 INR 1.11 (0.83-1.16) 03/18/17 15:46 ICD10 Worksheet Patient Problems: Problems Problem Status Onset Altered mental status Acute Dehydration Acute Hyperbilirubinemia Acute Hyponatremia Acute Jaundice Acute Metabolic acidosis Acute Pancreatitis Acute Renal failure Acute Syncope Acute Thrombocytopenia Acute Transaminitis Acute
[2017-03-19 19:21] LABS: POTASSIUM 3.6 mEq/L (3.5-5.2)
[2017-03-20 05:06] LABS: IONIZED CALCIUM 0.74 MMOL/L (1.12-1.30)
[2017-03-20 05:08] LABS: ALANINE AMINOTRANSFERASE 117 IU/L (21-72); ALBUMIN 3.3 g/dL (3.5-5.0); ALKALINE PHOSPHATASE 157 IU/L (38-126); ANION GAP 12 mEq/L (8-16); ASPARTATE AMINOTRANSFERASE 262 IU/L (17-59); BILIRUBIN,TOTAL 15.8 mg/dL (0.1-1.4); BILIRUBIN-CONJUGATED 14.3 mg/dL (0.0-0.5); BILIRUBIN-UNCONJUGATED 1.5 mg/dL (0.0-1.1); CARBON DIOXIDE 19 mEq/l (22-31); CHLORIDE 104 mEq/L (97-110); CREATININE 1.4 mg/dL (0.7-1.3); GLOMERULAR FILTRATION RATE 54; GLUCOSE 124 mg/dL (70-100); MAGNESIUM 1.4 mg/dL (1.6-2.3); POTASSIUM 3.4 mEq/L (3.5-5.2); SODIUM 135 mEq/L (134-144); SPECIMEN ICTERUS 8; TOTAL PROTEIN 5.2 g/dL (6.3-8.2)
[2017-03-20 05:10] LABS: CALCIUM 5.7 mg/dL (8.5-10.4)
[2017-03-20 05:26] LABS: ABSOLUTE NRBC COUNT 0.37 10^3/uL (0-0.01); ADD DIFF? YES; ATYPICAL LYMPHOCYTE FLAG 0 (0-99); FRAGMENT RBC FLAG 0 (0-99); HEMATOCRIT 27.7 % (40.0-51.0); LIPEMIA HEMOLYSIS FLAG 90 (0-99); MEAN CELL HEMOGLOBIN 38.9 pg (27.9-34.1); MEAN CELL HEMOGLOBIN CONCENTR. 36.1 g/dL (32.4-36.7); MEAN CELL VOLUME 107.8 fL (81.5-99.8); MEAN PLATELET VOLUME 10.9 fL (8.7-11.7); PLATELET CLUMPS FLAG 10 (0-99); PLATELET COUNT 83 10^3/uL (150-400); RED BLOOD CELL COUNT 2.57 10^6/uL (4.40-6.38); RED CELL DISTRIBUTION WIDTH 16.9 % (11.5-15.2)
[2017-03-20 05:29] LABS: ADD MORPH? NO; ADD SCAN? NO; LEFT SHIFT FLG 130 (0-99); NRBC-AUTO% 6.3 % (0.0-0.2)
[2017-03-20 05:44] LABS: HYPOCHROMIA 1+; MACROCYTES 1+; PLATELET ESTIMATE DECREASED (ADEQ); POLYCHROMASIA 2+; STOMATOCYTES 1+
[2017-03-20] MEDS: HEPARIN 5,000 UNIT/0.5 ML SYR SC SCH ×3 (05:45→20:30)
[2017-03-20] MEDS ORDERED: CALCIUM GLUCONATE 2 GM in NS 50 ML IV ONE (06:09)
[2017-03-20] MEDS: LORazepam 1 MG TAB PO PRN ×3 (07:30→20:01)
[2017-03-20] MEDS: MULTIVITAMINS 1 EACH TAB PO SCH (08:50)
[2017-03-20] MEDS: FOLIC ACID 1 MG TAB PO SCH (08:50)
[2017-03-20] MEDS: THIAMINE HCL 100 MG TAB PO SCH (08:51)
[2017-03-20] MEDS: LACTULOSE 20 GM/30 ML UDCUP PO SCH (08:52)
[2017-03-20] MEDS: NS 1,000 ML IV SCH (11:08)
[2017-03-20] MEDS ORDERED: MAGNESIUM SULF 2 GM/WATER 50 ML IV ONE (11:11)
[2017-03-20] MEDS ORDERED: POTASSIUM CL 10 MEQ TAB PO ONE ×2 (11:12→19:50)
--- NOTE | 2017-03-20 14:52 | SOAPPROG ---
SOAP Progress Note Assessment/Plan: Assessment:Plan: 1) Alcoholic Hepatitis - recheck Protime today, Maddrey Discrim function was < 32 and bile decreased, so as long as protime hasn't increased, he wont need any steroids. Will need program and lifelong abstinence 2) Encephalopathy - noted to be confused at home, today with no asterixis and a+ ox3, will stop lactulose as will cause diarrhea. If needs tx would use Xifaxan 550 mg BID 3) Pancreatitis - less pain today but still present, NPO for now - prob start clears tomorrow 4) renal/lytes - as per renal and hospitalists, 03/18/17 12:37 03/19/17 11:41 as above 1) protime normal, bili back up but MDF < 32 = no steroids 2) HE - A+Ox3, no asterixis, if becomes confused, start Xifaxan 3) pancreatitis - advance to clears 4) renal/lytes - as per renal/hospitalists will follow 03/20/17 14:49 as von 1) Alc Hep - no need for steroids as MDD < 32, lifelong abstinence 2) HE - more confused today, will start Xifaxan 550mg BID 3) pancreatitis - trail of clears 4) renal/lytes - as per hospitalists 5) dispo - does he need some rehab of ok at home with relatives? Subjective: cc- alc hep, pancreatitis, encephalopathy more confused today, more tremor says abdo less painful wants to he more PO intake Objective: Vital Signs Temp Pulse Resp BP Pulse Ox 36.6 C 110 H 16 131/90 H 97 03/20/17 11:41 03/20/17 11:41 03/20/17 11:41 03/20/17 11:41 03/20/17 11:41 Laboratory Results 03/20/17 04:37 03/20/17 04:37 03/19/17 03/20/17 03/21/17 05:59 05:59 05:59 Intake Total 1999 Output Total Balance -1999 PT 14.2 SEC (12.0-15.0) 03/18/17 15:46 INR 1.11 (0.83-1.16) 03/18/17 15:46 A+Ox2, person and place CTA S1S2 +BS, soft, tender no r/g Laboratory Tests 03/17/17 03/17/17 03/18/17 09:07 09:07 05:40 Hgb 11.6 L Hct 31.4 L PT INR Total Bilirubin Conjugated Bilirubin Unconjugated Bilirubin AST ALT Alkaline Phosphatase Hepatitis A IgM Ab NEGATIVE Hep Bs Antigen NEGATIVE Hep Bs Antibody Negative Hep Bs Antibody, Quant <5.0 Hepatitis C Antibody NEGATIVE 03/18/17 03/18/17 03/19/17 05:40 15:46 05:41 Hgb 10.8 L Hct 29.5 L PT 14.2 INR 1.11 Total Bilirubin 13.5 H Conjugated Bilirubin 12.1 H Unconjugated Bilirubin 1.4 H AST 183 H ALT 112 H Alkaline Phosphatase Hepatitis A IgM Ab Hep Bs Antigen Hep Bs Antibody Hep Bs Antibody, Quant Hepatitis C Antibody 03/19/17 03/20/17 05:41 04:37 Hgb Hct PT INR Total Bilirubin 16.0 H 15.8 H Conjugated Bilirubin 14.5 H Unconjugated Bilirubin 1.5 H AST 216 H 262 H ALT 110 H 117 H Alkaline Phosphatase 140 H 157 H Hepatitis A IgM Ab Hep Bs Antigen Hep Bs Antibody Hep Bs Antibody, Quant Hepatitis C Antibody ICD10 Worksheet Patient Problems: Problems Problem Status Onset Altered mental status Acute Dehydration Acute Hyperbilirubinemia Acute Hyponatremia Acute Jaundice Acute Metabolic acidosis Acute Pancreatitis Acute Renal failure Acute Syncope Acute Thrombocytopenia Acute Transaminitis Acute
[2017-03-20] MEDS: RIFAXIMIN 550 MG TAB PO SCH ×2 (15:35→20:01)
--- NOTE | 2017-03-20 16:22 | HOSPPROG ---
Hospitalist Progress Note Assessment/Plan: DIAGNOSES: -SEVERE ACUTE PANCREATITIS, ALMOST CERTAINLY ALCOHOL INDUCED -ACUTE HEPATIC DYSFUNCTION, LIKELY PRIMARILY ALCOHOLIC HEPATITIS BUT PROBABLY ALSO HAS CIRRHOSIS -ACUTE RENAL FAILURE DUE TO ABOVE, IN SETTING OF GOOD BLOOD PRESSURES -ALCOHOLISM -ACUTE ENCEPHALOPATHY IS LIKELY HEPATIC BUT COULD BE NUTRITIONAL AND ETOH WD WELL -SEVERE ELECTROLYTE DEFICIENCIES INCLUDING CALCIUM, MAGNESIUM, POTASSIUM -SUSPECT THIAMINE DEFICIENCY -COAGULOPATHY AND THROMBOCYTOPENIA FROM ALCOHOL AND LIVER DISEASE -POTENTIAL FOR ALCOHOL WITHDRAWAL ALTHOUGH AT 72 HOURS OUT FROM A STRENGTH THIS IS PROBABLY UNLIKELY PLANS: -trial of po fluids -Continue electrolyte replacements -Thiamin and other vitamin replacement -Follow inflammatory markers and function of liver, kidneys, pancreas closely -Continue [facility] protocol -DVT prophylaxis -still there is no indication for steroids for his liver but will follow his recovery closely and reassess over time -will review timing of repeat CT abd w Dr Carpenter SUBJECTIVE: some tremor today slightly stronger and walked better today taking small amount po fluid without difficulty so far but abd is more distended today OBJECTIVE Vitals reviewed: tachycardic today with no sob, chest pain, leg pain or swelling, nausea, fever: BPs good Exam: alert oriented Currently relaxed, mild tremor, slighlty confused skin warm dry but still with marked jaundice resps not labored lungs clear BSs heart regular abd soft still somewhat distended, nontender, bowel sounds present limbs warm, no edema iv site ok laboratory data remarkable for severe hypocalcemia, along with hypo magnesium and hypokalemia typical of his alcoholism Calcium remains quite low Renal function continues to improve bilirubin stable but still at 15 Objective: Vital Signs Temp Pulse Resp BP Pulse Ox 38.3 C 128 H 18 113/72 97 03/20/17 15:58 03/20/17 15:58 03/20/17 15:58 03/20/17 15:58 03/20/17 15:58 Laboratory Results 03/20/17 04:37 03/20/17 04:37 03/19/17 03/20/17 03/21/17 06:59 06:59 06:59 Intake Total 1999 Output Total Balance -1999 PT 14.2 SEC (12.0-15.0) 03/18/17 15:46 INR 1.11 (0.83-1.16) 03/18/17 15:46 ICD10 Worksheet Patient Problems: Problems Problem Status Onset Altered mental status Acute Dehydration Acute Hyperbilirubinemia Acute Hyponatremia Acute Jaundice Acute Metabolic acidosis Acute Pancreatitis Acute Renal failure Acute Syncope Acute Thrombocytopenia Acute Transaminitis Acute
[2017-03-20] MEDS ORDERED: POTASSIUM CL 20 MEQ/15 ML UDCUP PO ONE (17:40)
[2017-03-20] MEDS ORDERED: K PHOS 20 MMOL in D5W 250 ML IV ONE (17:43)
--- NOTE | 2017-03-20 17:44 | SOAPPROG ---
SOAP Progress Note Assessment/Plan: Assessment/Plan: LEO: likely multifactorial, could have prerenal injury, may have some component of hepatorenal syndrome but less likely, more likely had some ATN in the setting of hypotension, pancreatitis, and hepatitis. Cr now improving, peaked at 3.7 and now down to 1.4. - No need for HD. - Continue IVFs. - Avoid hypotension, MOM, morphine, demerol, NSAIDs, contrast, aminoglycosides , fleets, and other nephrotoxins. - Will continue to monitor. Hypokalemia: K 3.4, replaced today, will monitor. Hypophos: will give IV KPhos today and continue to monitor. Hypocalcemia: pt got additional calcium this am, will continue to monitor. Hypomagnesemia: pt got additional magnesium today, will continue to monitor. Subjective: No acute events overnight. Pt with no complaints today, now drinking clear liquids. Objective: Vital Signs Temp Pulse Resp BP Pulse Ox 38.3 C 128 H 18 113/72 97 03/20/17 15:58 03/20/17 15:58 03/20/17 15:58 03/20/17 15:58 03/20/17 15:58 Laboratory Results 03/20/17 04:37 03/20/17 04:37 03/19/17 03/20/17 03/21/17 05:59 05:59 05:59 Intake Total 2000 Output Total 5 Balance -1999 PT 14.2 SEC (12.0-15.0) 03/18/17 15:46 INR 1.11 (0.83-1.16) 03/18/17 15:46 General: alert and oriented, no acute distress Eyes; EOMI, PERRL, sclerae icteric OP: Clear CV: RRR Resp: nonlabored respirations on RA Abd; distended, NTTP Ext: no edema Neuro: CN II-XII grossly intact Skin: jaundiced Psych: cooperative, slightly confused ICD10 Worksheet Patient Problems: Problems Problem Status Onset Altered mental status Acute Dehydration Acute Hyperbilirubinemia Acute Hyponatremia Acute Jaundice Acute Metabolic acidosis Acute Pancreatitis Acute Renal failure Acute Syncope Acute Thrombocytopenia Acute Transaminitis Acute
[2017-03-20 18:42] LABS: POTASSIUM 3.6 mEq/L (3.5-5.2)
[2017-03-20] MEDS: ZOLPIDEM TARTRATE 5 MG TAB PO PRN (20:01)
[2017-03-21 04:56] LABS: IONIZED CALCIUM 0.84 MMOL/L (1.12-1.30)
[2017-03-21] MEDS: HEPARIN 5,000 UNIT/0.5 ML SYR SC SCH (05:14)
[2017-03-21 05:15] LABS: INR 1.19 (0.83-1.16); PROTIME(PATIENT) 15.1 SEC (12.0-15.0)
[2017-03-21 05:22] LABS: % IMMATURE GRANULYOCYTES 1.9 % (0.0-1.1); ABSOLUTE NRBC COUNT 1.26 10^3/uL (0-0.01); ADD DIFF? NO; ADD MORPH? YES; ADD SCAN? YES; ATYPICAL LYMPHOCYTE FLAG 0 (0-99); FRAGMENT RBC FLAG 0 (0-99); HEMATOCRIT 29.6 % (40.0-51.0); HEMOGLOBIN 10.7 g/dL (13.7-17.5); LIPEMIA HEMOLYSIS FLAG 90 (0-99); MEAN CELL HEMOGLOBIN 39.1 pg (27.9-34.1); MEAN CELL HEMOGLOBIN CONCENTR. 36.1 g/dL (32.4-36.7); MEAN PLATELET VOLUME 12.1 fL (8.7-11.7); PLATELET CLUMPS FLAG 10 (0-99); RED BLOOD CELL COUNT 2.74 10^6/uL (4.40-6.38); RED CELL DISTRIBUTION WIDTH 17.4 % (11.5-15.2)
[2017-03-21 05:26] LABS: LEFT SHIFT FLG 300 (0-99); NRBC-AUTO% 24.6 % (0.0-0.2); PLATELET COUNT 44 10^3/uL (150-400)
[2017-03-21 05:27] LABS: ALBUMIN 3.2 g/dL (3.5-5.0); SPECIMEN ICTERUS 8
[2017-03-21 05:29] LABS: ALANINE AMINOTRANSFERASE 108 IU/L (21-72); ALKALINE PHOSPHATASE 127 IU/L (38-126); ANION GAP 16 mEq/L (8-16); ASPARTATE AMINOTRANSFERASE 231 IU/L (17-59); BILIRUBIN,TOTAL 15.9 mg/dL (0.1-1.4); BILIRUBIN-CONJUGATED 14.2 mg/dL (0.0-0.5); BILIRUBIN-UNCONJUGATED 1.7 mg/dL (0.0-1.1); CALCIUM 6.5 mg/dL (8.5-10.4); CARBON DIOXIDE 16 mEq/l (22-31); CHLORIDE 101 mEq/L (97-110); CREATININE 1.4 mg/dL (0.7-1.3); GLOMERULAR FILTRATION RATE 54; GLUCOSE 136 mg/dL (70-100); MAGNESIUM 1.3 mg/dL (1.6-2.3); POTASSIUM 4.1 mEq/L (3.5-5.2); SODIUM 133 mEq/L (134-144); TOTAL PROTEIN 5.2 g/dL (6.3-8.2)
[2017-03-21 06:15] LABS: SCAN POSITIVE
[2017-03-21 06:28] LABS: HYPOCHROMIA 1+; MACROCYTES 1+; PLATELET ESTIMATE DECREASED (ADEQ); POLYCHROMASIA 2+
[2017-03-21] MEDS ORDERED: CALCIUM GLUCONATE 2 GM in NS 50 ML IV ONE (07:19)
[2017-03-21] MEDS ORDERED: MAGNESIUM SULF 2 GM/WATER 50 ML IV ONE (07:20)
--- NOTE | 2017-03-21 09:40 | HOSPPROG ---
Hospitalist Progress Note Assessment/Plan: # tachycardia - multifactorial, doubt PE at this point but possible - no empiric AC given low plts # acute etOH abuse and w/d - very severe, may need ICU level care if he worsens - cont CIWA, bzds, thiamine # acute etOH hepatitis: DF 30 today, no indication for steroids - c/b ascites, thrombocytopenia, HE - cont xifaxan # acute encephalopathy - d/t etOH w/d, hepatitis - close monitoring # acute etOH pancreatitis - slowly improving, clears today - IVF # LEO - improving, likely hemodynamic # severe electrolyte abnormalities - replete Subjective: very impulsive per RN Objective: Vital Signs Temp Pulse Resp BP Pulse Ox 36.5 C 114 H 18 112/66 95 03/21/17 08:00 03/21/17 08:00 03/21/17 08:00 03/21/17 08:00 03/21/17 08:00 Laboratory Results 03/21/17 04:45 03/21/17 04:45 03/20/17 03/21/17 03/22/17 05:59 05:59 05:59 Intake Total 2000 Balance 2000 PT 15.1 SEC (12.0-15.0) H 03/21/17 04:45 INR 1.19 (0.83-1.16) H 03/21/17 04:45 new pt to nc chart reviewed CT reviewed - Physical Exam Constitutional: unkempt, other (tremulous) Cardiovascular: regular rate and rhythym, no murmur, rub, or gallop, systolic murmur Respiratory: no respiratory distress, no rales or rhonchi, clear to auscultation Gastrointestinal: normoactive bowel sounds, ascites (soft, no TTP) ICD10 Worksheet Patient Problems: Problems Problem Status Onset Dehydration Acute Altered mental status Acute Syncope Acute Jaundice Acute Thrombocytopenia Acute Hyperbilirubinemia Acute Transaminitis Acute Hyponatremia Acute Renal failure Acute Pancreatitis Acute Metabolic acidosis Acute
[2017-03-21] MEDS: FOLIC ACID 1 MG TAB PO SCH (10:08)
[2017-03-21] MEDS: THIAMINE HCL 100 MG TAB PO SCH (10:09)
[2017-03-21] MEDS: RIFAXIMIN 550 MG TAB PO SCH ×2 (10:09→20:38)
[2017-03-21] MEDS: MULTIVITAMINS 1 EACH TAB PO SCH (10:09)
--- NOTE | 2017-03-21 11:40 | SOAPPROG ---
SOAP Progress Note Assessment/Plan: Assessment: 1. LEO Likely ATN, but may have contributing hemodynamics related to renal failure. Cr markedly improved, non oliguric. 2. Ascites Becoming tense. Will stop IVF and follow. May need tap. Decreased intra abdominal pressure may benefit renal hemodynamics 3. Electrolytes Replacing K, Mg, Phos, and Ca. Phos levels are concerning. Treat, while monitoring effect on Ca. 4. ETOH On vitamin supplementation. Tremulous. Plan: 03/21/17 11:35 Subjective: Alert, states he is feeling better Objective: Vital Signs Temp Pulse Resp BP Pulse Ox 36.5 C 114 H 18 112/66 95 03/21/17 08:00 03/21/17 08:00 03/21/17 08:00 03/21/17 08:00 03/21/17 08:00 Laboratory Results 03/21/17 04:45 03/21/17 04:45 03/20/17 03/21/17 03/22/17 05:59 05:59 05:59 Intake Total 2000 Balance 2000 PT 15.1 SEC (12.0-15.0) H 03/21/17 04:45 INR 1.19 (0.83-1.16) H 03/21/17 04:45 Physical Exam - Physical Exam General Appearance: mild distress Respiratory: lungs clear Cardiac/Chest: tachycardia Abdomen: non-tender, ascites (becoming tense) Extremities: normal inspection Neuro/Psych: alert ICD10 Worksheet Patient Problems: Problems Problem Status Onset Altered mental status Acute Dehydration Acute Hyperbilirubinemia Acute Hyponatremia Acute Jaundice Acute Metabolic acidosis Acute Pancreatitis Acute Renal failure Acute Syncope Acute Thrombocytopenia Acute Transaminitis Acute
--- NOTE | 2017-03-21 11:48 | SOAPPROG ---
ARUN Progress Note Assessment/Plan: Assessment:Plan: 03/20/17 14:49 as von 1) Alc Hep - no need for steroids as MDD < 32, lifelong abstinence 2) HE - more confused today, will start Xifaxan 550mg BID 3) pancreatitis - trail of clears 4) renal/lytes - as per hospitalists 5) dispo - does he need some rehab of ok at home with relatives? 03/21/17 11:45 as above 1) Alc hep - MDF < 32 2) Alcoholism - life long abstinence 3) HE - on Xifaxan, I think his AMS is from withdrawal and not Hepatic Encephalopathy 3) pancreatitis - clears for now, trail of more when less withdrawal 4) lytes - as per hospitalists 5) alcohol withdrawal - as per hospitalists 5) dispo - if withdrawal worsens hospitalist may transfer to ICU, I think he will need some SNF when able to be discharged form [facility] Subjective: cc- alc hep, alc pancreatitis alc withdrawal pt more confused this am thinks its 1965, doesn't know what type of building he is in not belligerent, seems comfortable but confused Objective: Vital Signs Temp Pulse Resp BP Pulse Ox 36.5 C 112 H 18 112/83 H 96 03/21/17 11:39 03/21/17 11:39 03/21/17 11:39 03/21/17 11:39 03/21/17 11:39 Laboratory Results 03/21/17 04:45 03/21/17 04:45 03/20/17 03/21/17 03/22/17 05:59 05:59 05:59 Intake Total 1999 Balance 1999 PT 15.1 SEC (12.0-15.0) H 03/21/17 04:45 INR 1.19 (0.83-1.16) H 03/21/17 04:45 A+Ox1 CTA S1S2 +BS, soft bartenders more in RUQ > epi no r/g ICD10 Worksheet Patient Problems: Problems Problem Status Onset Altered mental status Acute Dehydration Acute Hyperbilirubinemia Acute Hyponatremia Acute Jaundice Acute Metabolic acidosis Acute Pancreatitis Acute Renal failure Acute Syncope Acute Thrombocytopenia Acute Transaminitis Acute
[2017-03-21] MEDS ORDERED: MAGNESIUM SULF 1 GM/DEXTROSE 100 ML IV ONE (12:07)
[2017-03-21] MEDS: POTASSIUM/SODIUM PHOSPHATE 1 PKT PO SCH (15:19)
[2017-03-21] MEDS ORDERED: K PHOS 20 MMOL in D5W 250 ML IV ONE (16:49)
[2017-03-21 17:10] LABS: PCO2 VENOUS 29 mmHg (40-44); PH VENOUS BLOOD 7.31 (7.31-7.42); PO2 VENOUS 106 mmHg (35-40); TCO2 VENOUS 15 mEq/L (23-27); VEN MEASURED OXYGEN SATURATION 98 % (65-75)
[2017-03-21 17:38] LABS: POTASSIUM 4.4 mEq/L (3.5-5.2)
[2017-03-21] MEDS: LORazepam 1 MG TAB PO PRN ×2 (19:24→23:24)
[2017-03-21] MEDS: ZOLPIDEM TARTRATE 5 MG TAB PO PRN (20:38)
[2017-03-22 04:47] LABS: IONIZED CALCIUM 0.91 MMOL/L (1.12-1.30)
[2017-03-22 04:59] LABS: % IMMATURE GRANULYOCYTES 1.3 % (0.0-1.1); ABSOLUTE IMMATURE GRANULOCYTES 0.14 10^3/uL (0.00-0.10); ABSOLUTE NRBC COUNT 2.18 10^3/uL (0-0.01); ADD DIFF? NO; ADD MORPH? YES; ADD SCAN? YES; ATYPICAL LYMPHOCYTE FLAG 0 (0-99); FRAGMENT RBC FLAG 0 (0-99); HEMATOCRIT 28.4 % (40.0-51.0); HEMOGLOBIN 10.1 g/dL (13.7-17.5); LIPEMIA HEMOLYSIS FLAG 90 (0-99); MEAN CELL HEMOGLOBIN 38.8 pg (27.9-34.1); MEAN CELL HEMOGLOBIN CONCENTR. 35.6 g/dL (32.4-36.7); MEAN CELL VOLUME 109.2 fL (81.5-99.8); MEAN PLATELET VOLUME 12.3 fL (8.7-11.7); PLATELET CLUMPS FLAG 10 (0-99); RED CELL DISTRIBUTION WIDTH 18.4 % (11.5-15.2)
[2017-03-22 05:03] LABS: ALANINE AMINOTRANSFERASE 94 IU/L (21-72); ALBUMIN 2.8 g/dL (3.5-5.0); ALKALINE PHOSPHATASE 123 IU/L (38-126); ANION GAP 12 mEq/L (8-16); ASPARTATE AMINOTRANSFERASE 157 IU/L (17-59); BILIRUBIN-CONJUGATED 14.3 mg/dL (0.0-0.5); BILIRUBIN-UNCONJUGATED 1.7 mg/dL (0.0-1.1); CALCIUM 6.8 mg/dL (8.5-10.4); CARBON DIOXIDE 15 mEq/l (22-31); CHLORIDE 103 mEq/L (97-110); CREATININE 1.5 mg/dL (0.7-1.3); GLOMERULAR FILTRATION RATE 50; GLUCOSE 129 mg/dL (70-100); MAGNESIUM 1.7 mg/dL (1.6-2.3); POTASSIUM 4.6 mEq/L (3.5-5.2); SODIUM 130 mEq/L (134-144); SPECIMEN ICTERUS 9; TOTAL PROTEIN 4.9 g/dL (6.3-8.2)
[2017-03-22 05:38] LABS: LEFT SHIFT FLG 300 (0-99); NRBC-AUTO% 20.4 % (0.0-0.2)
[2017-03-22 05:39] LABS: PLATELET COUNT 18 10^3/uL (150-400)
[2017-03-22 05:50] LABS: SCAN POSITIVE
[2017-03-22 06:00] LABS: TOXIC VACUOLIZATION PRESENT
[2017-03-22 06:01] LABS: PLATELET ESTIMATE DECREASED (ADEQ)
[2017-03-22 06:02] LABS: HYPOCHROMIA 1+; MACROCYTES 1+; POLYCHROMASIA 2+
--- NOTE | 2017-03-22 08:54 | HOSPPROG ---
Hospitalist Progress Note Assessment/Plan: # tachycardia - multifactorial, doubt PE at this point but possible - no empiric AC given low plts # acute etOH abuse and w/d - continues to be very severe; still appropriate for med surg but may need ICU - cont CIWA, bzds, thiamine # acute etOH hepatitis: DF 30 today, no indication for steroids - need to recheck INR today - c/b ascites, thrombocytopenia, HE - cont xifaxan # severe thrombocytopenia - d/t acute hepatitis, follow # acute encephalopathy - d/t mainly etOH w/d though these is a component of HE as well - close monitoring # acute etOH pancreatitis - slowly improving, cont clears # LEO/NAGMA - improved, but doubt at baseline # hypervolemic hyponatremia # severe electrolyte abnormalities (hypoCA/phos/K/Mg)- replete aggressively Subjective: still very confused; "feels better" Objective: Vital Signs Temp Pulse Resp BP Pulse Ox 36.8 C 113 H 18 113/82 H 92 03/22/17 08:34 03/22/17 08:34 03/22/17 08:34 03/22/17 08:34 03/22/17 08:34 Laboratory Results 03/22/17 04:35 03/22/17 04:35 03/21/17 03/22/17 03/23/17 05:59 05:59 05:59 Intake Total 680 Output Total 300 Balance 380 PT 15.1 SEC (12.0-15.0) H 03/21/17 04:45 INR 1.19 (0.83-1.16) H 03/21/17 04:45 high risk - Physical Exam Constitutional: unkempt Eyes: icteric sclera Cardiovascular: regular rate and rhythym, no murmur, rub, or gallop Respiratory: no respiratory distress, no rales or rhonchi, clear to auscultation Gastrointestinal: normoactive bowel sounds, ascites, distension, No tenderness, No guarding, No rebound Neurologic: other (AOx1; +asterixis) ICD10 Worksheet Patient Problems: Problems Problem Status Onset Dehydration Acute Altered mental status Acute Syncope Acute Jaundice Acute Thrombocytopenia Acute Hyperbilirubinemia Acute Transaminitis Acute Hyponatremia Acute Renal failure Acute Pancreatitis Acute Metabolic acidosis Acute
[2017-03-22 10:19] LABS: INR 1.36 (0.83-1.16); PROTIME(PATIENT) 16.8 SEC (12.0-15.0)
[2017-03-22] MEDS ORDERED: CALCIUM GLUCONATE 50 ML IV ONE (10:20)
[2017-03-22] MEDS: FOLIC ACID 1 MG TAB PO SCH (10:26)
[2017-03-22] MEDS: MULTIVITAMINS 1 EACH TAB PO SCH (10:26)
[2017-03-22] MEDS: THIAMINE HCL 100 MG TAB PO SCH (10:26)
[2017-03-22] MEDS: POTASSIUM/SODIUM PHOSPHATE 1 PKT PO SCH (10:27)
[2017-03-22] MEDS: RIFAXIMIN 550 MG TAB PO SCH ×2 (10:27→21:43)
[2017-03-22] MEDS: LORazepam 1 MG TAB PO PRN (11:38)
--- NOTE | 2017-03-22 12:15 | SOAPPROG ---
SOAP Progress Note Assessment/Plan: Assessment: 1. LEO. Likely ATN due to pancreatitis/third spacing/volume depletion. Cannot r/o hemodynamic component due to liver. Creat peaked at 4.1, now improved up slightly from 1.4 yesterday to 1.5. Last known b/l was 1.1 in 2010. 2. Hypophosphatemia. Improving, 1.5 today. Continue to follow daily and replace until > 2.5. K and Mg now repleted. Replace today. 3. EtOH hepatitis. TBili remains 16. Not on steroids currently. Hopefully will improve with time. 4. Acidosis. Non-gap. Likely expansion acidosis from NS. No urgent need to replace HCO3. 5. Edema. Mild. Hold lasix for now. 6. EtoH withdrawal. Continue CIWA protocol. Plan: 03/22/17 12:13 03/22/17 12:15 03/22/17 12:18 03/22/17 12:18 03/22/17 12:19 03/22/17 12:22 Subjective: Pulled out IV earlier today. Very agitated per RN. He denies complaints. Objective: Vital Signs Temp Pulse Resp BP Pulse Ox 36.8 C 113 H 18 113/82 H 92 03/22/17 08:34 03/22/17 08:34 03/22/17 08:34 03/22/17 08:34 03/22/17 08:34 Laboratory Results 03/22/17 04:35 03/22/17 04:35 03/21/17 03/22/17 03/23/17 05:59 05:59 05:59 Intake Total 680 Output Total 300 Balance 380 PT 16.8 SEC (12.0-15.0) H 03/22/17 09:30 INR 1.36 (0.83-1.16) H 03/22/17 09:30 Anxious, jaundiced wm Tachycardic, irir, no m/g/r CTAB Abdom soft, nt 2+ sacral edema ICD10 Worksheet Patient Problems: Problems Problem Status Onset Dehydration Acute Altered mental status Acute Syncope Acute Jaundice Acute Thrombocytopenia Acute Hyperbilirubinemia Acute Transaminitis Acute Hyponatremia Acute Renal failure Acute Pancreatitis Acute Metabolic acidosis Acute
[2017-03-22] MEDS ORDERED: MAGNESIUM SULF 1 GM/DEXTROSE 100 ML IV ONE (12:30)
[2017-03-22] MEDS ORDERED: K PHOS 20 MMOL in D5W 250 ML IV ONE (12:36)
[2017-03-22] MEDS ORDERED: NS 1,000 ML IV ONE (12:55)
--- NOTE | 2017-03-22 13:09 | CPEKG ---
Heart Rate: 163 RR Interval: 368 QRSD Interval: 86 QT Interval: 296 QTC Interval: 488 QRS [place]: 46 T Wave [place]: -9 EKG Severity - ABNORMAL ECG - EKG Impression: ATRIAL FIBRILLATION, V-RATE 113-183 EKG Impression: BORDERLINE T ABNORMALITIES, INFERIOR LEADS EKG Impression: BORDERLINE PROLONGED QT INTERVAL Electronically Signed By: Chris Wolfe 23-Mar-2017 12:22:04
[2017-03-22] MEDS ORDERED: AMIODARONE HCL 200 ML IV ONE ×2 (13:11→14:12)
[2017-03-22] MEDS ORDERED: AMIODARONE HCL 100 ML IV ONE ×2 (13:11→14:12)
[2017-03-22] MEDS ORDERED: PHYTONADIONE 10 MG in NS 50 ML IV ONE (13:30)
[2017-03-22] MEDS ORDERED: NS 1,000 ML IV SCH (15:30)
[2017-03-22] MEDS ORDERED: PROPOFOL/EMULSION 500 MG/50 ML BOTTLE IV ONE (16:01)
[2017-03-22] MEDS ORDERED: PHENYLEPHRINE HCL 100 MCG/ML SYR ONE (16:06)
[2017-03-22] MEDS ORDERED: ETOMIDATE 20 MG/10 ML VIAL ONE (16:06)
[2017-03-22] MEDS ORDERED: PROPOFOL 200 MG/20 ML VIAL ONE (16:15)
[2017-03-22] MEDS ORDERED: LIDOCAINE 2% 5 ML SDV ONE (16:15)
--- NOTE | 2017-03-22 16:22 | SOAPPROG ---
SOAP Progress Note Assessment/Plan: Assessment:Plan: 03/21/17 11:45 as above 1) Alc hep - MDF < 32 2) Alcoholism - life long abstinence 3) HE - on Xifaxan, I think his AMS is from withdrawal and not Hepatic Encephalopathy 3) pancreatitis - clears for now, trail of more when less withdrawal 4) lytes - as per hospitalists 5) alcohol withdrawal - as per hospitalists 5) dispo - if withdrawal worsens hospitalist may transfer to ICU, I think he will need some SNF when able to be discharged form [facility] 03/22/17 16:18 pt moved to ICU for Afib rapid rate decreased BP still in withdrawal, confused, but not agitated 1) Alc hep - MDF > 32 but I think it maybe from Vit K depletion causing increased protime. I gave some Vit K today will recheck PT in am, IF MDD still > 32 then will start steroids 2) Confusion - prob more from withdrawl, on XIFAXAN for possible HE 3) pancreatitis - improving slowly, less pain today 4) lytes/renal - as per hospitalist and renal 5) withdrawal - on protocol 6) Afib - as per cardiology, for cardioversion today 7) thrombocytopenia - unclear etiology, not bleeding, doesn't appear to have hemolysis will follow Subjective: cc- alc hep, alc panc, afib, renal failure pt still confused, but says his abdo is less painful in rapid a-fib,with low BP so transferred to ICU at bedside with him Objective: Vital Signs Temp Pulse Resp BP Pulse Ox 37.1 C 160 H 30 H 96/51 L 93 03/22/17 14:51 03/22/17 14:51 03/22/17 14:51 03/22/17 14:51 03/22/17 14:51 Laboratory Results 03/22/17 04:35 03/22/17 04:35 03/21/17 03/22/17 03/23/17 05:59 05:59 05:59 Intake Total 680 Output Total 300 Balance 380 PT 16.8 SEC (12.0-15.0) H 03/22/17 09:30 INR 1.36 (0.83-1.16) H 03/22/17 09:30 A+Ox1 CTA S1S2, irreg, tachy +BS, distended, less tender no r/g ICD10 Worksheet Patient Problems: Problems Problem Status Onset Altered mental status Acute Dehydration Acute Hyperbilirubinemia Acute Hyponatremia Acute Jaundice Acute Metabolic acidosis Acute Pancreatitis Acute Renal failure Acute Syncope Acute Thrombocytopenia Acute Transaminitis Acute
--- NOTE | 2017-03-22 16:42 | CPEKG ---
Heart Rate: 100 RR Interval: 600 P-R Interval: 140 QRSD Interval: 100 QT Interval: 368 QTC Interval: 475 P [place]: 47 QRS [place]: 43 T Wave [place]: 49 EKG Severity - ABNORMAL ECG - EKG Impression: SINUS TACHYCARDIA EKG Impression: PROBABLE POSTERIOR INFARCT EKG Impression: IN COMPARISON TO PRIOR, SINUS TACHYCARDIA IS NOW NOTED. Electronically Signed By: Chris Wolfe 23-Mar-2017 12:22:39
--- NOTE | 2017-03-22 17:22 | GCON ---
[f rep st] CONSULTATION CARDIOLOGY CONSULTATION REASON FOR CONSULTATION: Atrial fibrillation, with rapid ventricular response. HISTORY OF PRESENT ILLNESS: The patient is a 52-year-old male, who reports no significant cardiac past history, with known history of non-Hodgkin's lymphoma diagnosed in 1999. Also had stem cell transplant in 2000. Considered cancer- free. Has not been on chemotherapy in multiple years. Was admitted to the hospital on 03/17 for complaint of confusion and abdomen swelling. The patient with known history of significant alcohol intake, reporting taking 4 days to drink a half a gallon of [place]. Found through laboratory studies and CT of the abdomen of having acute EtOH hepatitis, severe thrombocytopenia, acute encephalopathy, and acute EtOH pancreatitis. Also, acute kidney injury was noted. Initial creatinine at 3.3, with elevation up to 3.9 on March 18, and currently down to 1.5 today. Per patient and his , he had been feeling somewhat nauseous before admission, with abdominal swelling. On the day of admission, he has been noted to be slurred speech and somewhat confused. He has been treated with IV fluid. He has been followed by Nephrology, and had been doing fairly well with stable vital signs up on until this afternoon around noon, in which he went into atrial fibrillation with rapid ventricular response, with heart rates up to 163 beats per minute. The patient denied any chest pain or symptoms with fast heart rate. Was noted that his systolic blood pressure did drop down to the low 80s. The patient was transferred to the intensive care unit due to no telemetry beds. Upon arrival, he was given 150 mg of amiodarone over 10 minutes, which did seem to decrease his rate down to 120-130, but continues to have mildly low systolic blood pressures. The patient and his report to me that the patient has really no significant history of coronary artery disease, and no significant family heart disease. Cardiac risk factors include sex and age. Patient denies of any history of chest pain, pressure, shortness of breath, palpitations, lightheadedness, orthopnea, PND, edema, near-syncope or syncopal events. PAST MEDICAL HISTORY: Includes: 1. Non-Hodgkin lymphoma diagnosed in 1999. 2. Stem cell transplant in 2000. 3. Alcohol abuse. 4. Acute EtOH hepatitis. 5. Severe thrombocytopenia. 6. Acute encephalopathy. 7. Acute EtOH pancreatitis. FAMILY HISTORY: Patient and report no significant family history of coronary artery disease. SOCIAL HISTORY: Patient works in construction. He is . He has 3 children. Drinks significant amount of alcohol daily. Denies any illicit drug use. ALLERGIES: Patient has no known drug allergies. MEDICATIONS: At home, Restoril 15 mg p.o. at bedtime p.r.n., Ambien 10 mg p.o. at bedtime p.r.n., herbs and supplements. REVIEW OF SYSTEMS: A 10-point review of systems done on this patient all negative, except as mentioned above. PHYSICAL EXAMINATION: GENERAL APPEARANCE: Medium-built male, alert to person, place, time, and situation, appears to be under no acute distress at this time. VITAL SIGNS: Current vital signs are blood pressure of 96/51, heart rate 160, atrial fibrillation on the monitor, respirations 18, saturating 93% on room air, temperature of 37.1 degrees Celsius. HEENT: Head is normocephalic. Lips and tongue are pink and moist, with no signs of cyanosis. Conjunctivae jaundiced. NECK: Trachea is midline. Carotid pulses +2 bilateral. No auscultated bruits. No jugular vein distention. RESPIRATORY: Lungs clear, with expiratory wheezes noted. No rhonchi, rales or wheezing noted. Diminished in bases bilateral. CARDIAC: Irregular rate, tachy rhythm noted. No S1, S2. No S3 noted. ABDOMEN: Firm. Hypoactive bowel sounds. Nontender to palpation. SKIN: Jaundice, warm, dry. No cyanosis, no clubbing, no peripheral edema. VASCULAR: Carotids +2 bilateral. Radials +2 bilateral. Dorsal pedal and posterior tibial pulses +2 bilateral. LABORATORY DATA: Laboratory studies drawn today show WBC of 10.68, hemoglobin of 10.1, hematocrit of 28.4, platelet count of 18. Sodium of 130, potassium 4.6 , chloride 103, CO2 15, BUN 13, creatinine 1.5, glucose 129, calcium 6.8, ionized calcium 0.91, magnesium 1.5, magnesium 1.7. Total bilirubin 16.0, AST 157, ALT 94, alkaline phosphatase 123, total protein 4.9, albumin 2.8. INR was 1.36. IMAGING: Electrocardiogram done today, as mentioned above, atrial fibrillation with RVR. Chest x-ray done on March 20 showed minimal basilar atelectasis, with no pleural effusions. Abdominal ultrasound done on March 17 showing hepatomegaly, with diffuse stenosis and limited sonogram penetration. Abdominal pelvis CT showing peripancreatic strain and fluid, with small amount of free intraperitoneal fluid consistent with pancreatitis. Enlarged fatty liver. CT of the head done on March 17 showing no acute intracranial findings. ASSESSMENT AND PLAN: 1. Atrial fibrillation, with rapid ventricular response: The patient converted to atrial fibrillation with rapid ventricular response around noon today. He has been noted to have mildly decreased systolic blood pressures in the 80s to 90s. He has been noted to have rates up to 150 BPM. He denies of any chest pain, shortness of breath or lightheadedness. He is currently on bedrest. He has only had a clear liquid breakfast at 10:30 this morning. After discussing with Dr. Wilson, Dr. Boland, and pharmacy, with his recent alcohol hepatitis, concerns with amiodarone. We will give him 150 mg IV bolus at this time. We will monitor for any arrhythmias. We will continue to monitor him on continuous cardiac monitoring. If he does not convert by 4 o' clock this afternoon or if his systolic blood pressure remains low, we will plan on doing cardioversion. Patient has a fairly low CHADS-VASc score. With his platelet count of only 18 today, anticoagulation therapy is not indicated. Since he has only been in atrial fibrillation for less than a few hours, if we do decide to cardiovert, we may not need anticoagulation. If he does convert, we will plan on him getting a transthoracic echo. We will check a TSH level in the morning. Further recommendations to follow after 4 p.m. If necessary, we can always emergent cardioversion if necessary. 2. Acute alcohol abuse: Patient is currently on CIWA precautions, being monitored by hospitalist. 3. Severe thrombocytopenia: Patient with history of non-Hodgkin's lymphoma. Platelet counts have dropped significantly, probably due to acute EtOH hepatitis. We will continue to monitor. Consideration of contacting his oncologist if platelet count remains low. 4. Acute kidney injury: Patent noted to have creatinine of up to 3.9 on hospitalization, improved today at 1.5, being followed by Neurology. 5. Severe electrolyte abnormalities: This is being replaced aggressively by Hospitalist services. Thank you for the consultation. We will be glad to follow along with you. /[id number]
--- NOTE | 2017-03-22 17:26 | CPIP ---
[f rep st] INVASIVE CARDIAC PROCEDURE PROCEDURE: 1. Transesophageal echocardiogram. 2. DC cardioversion. Patient's gave informed consent for both procedures. I very carefully went over with her the r isks of transesophageal echocardiogram, which include perforation, infection, and obviously occasion ally I went over with her the risks of cardioversion, and the biggest, most frightening risk is stroke wi th significant permanent impairment, including inability to move either side or not speak. She is a daniel of the risk of . She is aware of the risk of other complications. I explained to her delia t there is a 70% chance we might be able to cardiovert him quite well , but at least a 30% chance it may not work. She understood the risks, and she understood the options. She wanted to proceed ahead with the proc edure. Again, I went over with her extensively all the other options available to her. I also explained to her that we are significantly concerned about his risk of stroke, as we cannot a nticoagulate him. He has been in atrial fibrillation for a short period of time and may well do lloyd y well without full anticoagulation, but we would like to be able to do that. I have spoken to Hematology, and because of his low platelet count, they felt there is nothing we ca n do to anticoagulate him at all. His risk of bleeding is just way too high already. So, she understands that he does not have the option of taking a significant number of the medicatio ns that would be available to him normally, and that he is at higher risk than normal, and she agree d to proceed. The transesophageal echocardiogram was passed without any problem with Anesthesia present. The left atrial appendage was viewed and showed no significant abnormalities. Velocities appeared to be dea ewhat low but fairly brisk. There is no significant smoke. No other abnormalities observed, and we went on to cardioversion at 360 watt seconds with no complications, and patient tolerated that very well. I have reviewed the results with his . All their questions have been answered. His blood pressure was 80 systolic prior to cardioversion and it was between 75 and 80 for the hour or so before. His heart rate was in the 130s to 150s. With cardioversion, his heart rate dropped to 100, he is in sinus rhythm, and his blood pressure cam e right away up to above 94 systolic. He has tolerated the procedure well. Complications are none. We will follow him very closely. I have reviewed this case, as mentioned, with GI, the intensive ca re service, and the hospitalists, as well as the nursing staff. /[id number]/MODL
[2017-03-22 18:50] LABS: POTASSIUM 7.5 mEq/L (3.5-5.2)
[2017-03-22 19:26] LABS: POTASSIUM 6.2 mEq/L (3.5-5.2)
[2017-03-22] MEDS: LORazepam 2 MG/ML INJ IVP PRN (20:30)
[2017-03-22] MEDS: ZOLPIDEM TARTRATE 5 MG TAB PO PRN (21:50)
[2017-03-22] MEDS: DEXMEDETOMIDINE HCL 400 MCG in NS 100 ML IV SCH (23:35)
[2017-03-23] MEDS: LORazepam 2 MG/ML INJ IVP PRN ×2 (01:30→13:49)
[2017-03-23] MEDS ORDERED: NS 1,000 ML IV ONE (03:32)
[2017-03-23 04:08] LABS: IONIZED CALCIUM 0.88 MMOL/L (1.12-1.30)
[2017-03-23 04:22] LABS: INR 1.26 (0.83-1.16); PROTIME(PATIENT) 15.8 SEC (12.0-15.0)
[2017-03-23 04:35] LABS: MAGNESIUM 2.1 mg/dL (1.6-2.3); POTASSIUM 4.5 mEq/L (3.5-5.2)
[2017-03-23] MEDS ORDERED: CALCIUM GLUCONATE 2 GM in NS 50 ML IV ONE (05:17)
[2017-03-23 05:55] LABS: ABSOLUTE NRBC COUNT 1.72 10^3/uL (0-0.01); ADD DIFF? YES; ATYPICAL LYMPHOCYTE FLAG 0 (0-99); FRAGMENT RBC FLAG 0 (0-99); HEMOGLOBIN 9.6 g/dL (13.7-17.5); LIPEMIA HEMOLYSIS FLAG 90 (0-99); MEAN CELL HEMOGLOBIN 38.7 pg (27.9-34.1); MEAN CELL HEMOGLOBIN CONCENTR. 34.3 g/dL (32.4-36.7); MEAN CELL VOLUME 112.9 fL (81.5-99.8); MEAN PLATELET VOLUME 13.4 fL (8.7-11.7); PLATELET CLUMPS FLAG 0 (0-99); RED BLOOD CELL COUNT 2.48 10^6/uL (4.40-6.38); RED CELL DISTRIBUTION WIDTH 18.9 % (11.5-15.2)
[2017-03-23 05:58] LABS: ADD MORPH? NO; ADD SCAN? NO; LEFT SHIFT FLG 300 (0-99); NRBC-AUTO% 19.3 % (0.0-0.2)
[2017-03-23 05:59] LABS: PLATELET COUNT 7 10^3/uL (150-400)
[2017-03-23 06:08] LABS: ALANINE AMINOTRANSFERASE 79 IU/L (21-72); ALBUMIN 2.4 g/dL (3.5-5.0); ALKALINE PHOSPHATASE 126 IU/L (38-126); ANION GAP 12 mEq/L (8-16); ASPARTATE AMINOTRANSFERASE 147 IU/L (17-59); BILIRUBIN,TOTAL 17.9 mg/dL (0.1-1.4); CARBON DIOXIDE 18 mEq/l (22-31); CHLORIDE 103 mEq/L (97-110); CREATININE 2.1 mg/dL (0.7-1.3); GLOMERULAR FILTRATION RATE 34; GLUCOSE 104 mg/dL (70-100); POTASSIUM 4.4 mEq/L (3.5-5.2); SODIUM 133 mEq/L (134-144); TOTAL PROTEIN 4.2 g/dL (6.3-8.2)
[2017-03-23 06:13] LABS: CALCIUM 5.9 mg/dL (8.5-10.4)
[2017-03-23] MEDS ORDERED: ALBUMIN 25% 50 ML IV ONE (06:19)
[2017-03-23 06:21] LABS: BILIRUBIN-CONJUGATED 16.3 mg/dL (0.0-0.5); BILIRUBIN-UNCONJUGATED 1.6 mg/dL (0.0-1.1)
[2017-03-23] MEDS ORDERED: ALTEPLASE 2 MG VIAL IVP PRN (06:28)
[2017-03-23 06:32] LABS: SPECIMEN ICTERUS 11
[2017-03-23 06:46] LABS: PLATELET ESTIMATE DECREASED (ADEQ)
[2017-03-23 06:47] LABS: POLYCHROMASIA 1+; STOMATOCYTES 1+
[2017-03-23] MEDS: PHENYLEPHRINE HCL 50 MG in D5W 250 ML IV SCH ×3 (07:04→23:46)
--- NOTE | 2017-03-23 09:57 | GCON ---
[f rep st] CONSULTATION DIRECTOR PUBLIC CONSULTATION REASON FOR ADMISSION: To the intensive care unit, atrial fibrillation status post cardioversion. HISTORY OF PRESENT ILLNESS: This patient is an unfortunate 52-year-old white male with an extensive past medical history, including non-Hodgkin's lymphoma that was diagnosed and treated in 1999 with a stem cell transplant in 2000. He also has an extensive history of alcoholism. He was admitted on 03/17/2017 for severe acute alcohol induced pancreatitis, alcoholic hepatitis, renal failure, encep halopathy. Over the course of his hospitalization, he has done poorly. He is being followed dominga gregorio by Nephrology and GI. On 03/22/2017, he was found to be in atrial fibrillation with rapid respo nse. He was transferred to the intensive care unit where he underwent cardioversion. The patient r emains markedly confused. His is currently at the bedside. PAST MEDICAL HISTORY: Significant for non-Hodgkin's lymphoma and alcoholism. SOCIAL HISTORY: No history of tobacco use. Excessive alcohol use. He is . Lives with and 3 children. He has excellent family support. PHYSICAL EXAMINATION: VITAL SIGNS: Blood pressure is 95/62, pulse is 80, respirations 19, temperat ure 36.8, oxygen saturation 96% on 3 L. GENERAL: He is a well-developed, jaundiced 52-year-old whi te male who is markedly confused, but appears to be resting comfortably. HEENT: Eyes are PERRLA, E HAYDEN. He has scleral icterus. Throat shows no erythema or tonsillar hypertrophy. NECK: Supple. N o cervical adenopathy. HEART: Regular rate and rhythm with a 2/6 systolic murmur left sternal bord er without radiation. LUNGS: Diminished breath sounds, but no wheeze. ABDOMEN: Distended, tympan ic. Bowel sounds are diminished. EXTREMITIES: No clubbing, cyanosis, or edema. LABORATORIES: White count is 8.9, hemoglobin 9.6, hematocrit 28, platelet count is 7. INR is 1.26. Sodium 133, potassium 4.4, chloride 103, CO2 is 18, BUN 45, creatinine 2.1, glucose is 104. AST i s 147, ALT is 79. These have improved somewhat since admission. Ammonia level is 17. IMPRESSION: 1. Alcoholism. 2. Atrial fibrillation status post cardioversion. 3. Severe thrombocytopenia. 4. Alcoholic hepatitis, severe. 5. Alcoholic encephalopathy. 6. Alcoholic pancreatitis. 7. Acute renal failure. 8. Severe electrolyte abnormalities. RECOMMENDATIONS: 1. Close cardiovascular monitoring. 2. Follow withdrawal symptoms and continue CIWA protocol. 3. The patient is currently on Xifaxan for his altered mental status and hepatic encephalopathy. 4. Appreciate GI and Nephrology involvement. PROGNOSIS: Grim. Thank you very much. /[id number]/MODL
--- NOTE | 2017-03-23 10:05 | HOSPPROG ---
Hospitalist Progress Note Assessment/Plan: # hypotension - unclear if d/t hepatitis with vasodilation vs sepsis (no source yet identified) vs cardiogenic - check echo - cont pressors # acute encephalopathy - d/t mainly etOH w/d though these is a component of HE as well - CTH negative today # a-fib with RVR s/p WINSOME cardioversion - no AC given severe thrombocytopenia # severe thrombocytopenia - more severe than expected with hepatitis - heme consult today # acute etOH hepatitis: DF 35 today - GI to consider steroids - c/b ascites, thrombocytopenia, HE - cont xifaxan # LEO/NAGMA - worse again today - appreciate renal - will discuss possible need for hinojosa - would need urology to place # acute etOH abuse and w/d - cont CIWA, bzds, thiamine # acute etOH pancreatitis - seems mostly resolved # hypervolemic hyponatremia # severe electrolyte abnormalities (hypoCA/phos/K/Mg)- replete aggressively; improving 45 mins floor critical care time Subjective: s/p cardioversion yesterday; more confused today Objective: Vital Signs Temp Pulse Resp BP Pulse Ox 36.8 C 83 18 100/63 98 03/23/17 08:00 03/23/17 09:00 03/23/17 09:00 03/23/17 09:00 03/23/17 09:00 Laboratory Results 03/23/17 05:30 03/23/17 05:30 03/22/17 03/23/17 03/24/17 05:59 05:59 05:59 Intake Total 680 3622 Output Total 300 Balance 380 3622 PT 15.8 SEC (12.0-15.0) H 03/23/17 03:50 INR 1.26 (0.83-1.16) H 03/23/17 03:50 - Physical Exam Constitutional: other (jaundiced) Cardiovascular: regular rate and rhythym, no murmur, rub, or gallop Respiratory: no respiratory distress, no rales or rhonchi, clear to auscultation Gastrointestinal: distension, No tenderness, No guarding, No rebound ICD10 Worksheet Patient Problems: Problems Problem Status Onset Dehydration Acute Altered mental status Acute Syncope Acute Jaundice Acute Thrombocytopenia Acute Hyperbilirubinemia Acute Transaminitis Acute Hyponatremia Acute Renal failure Acute Pancreatitis Acute Metabolic acidosis Acute
[2017-03-23] MEDS ORDERED: ALBUMIN 25% 100 ML IV ONE (10:39)
--- NOTE | 2017-03-23 10:58 | SOAPPROG ---
SOAP Progress Note Assessment/Plan: Assessment:Plan: as above with pt moved to ICU for Afib rapid rate decreased BP still in withdrawal, confused, but not agitated 1) Alc hep - MDF > 32 but I think it maybe from Vit K depletion causing increased protime. I gave some Vit K today will recheck PT in am, IF MDD still > 32 then will start steroids 2) Confusion - prob more from withdrawl, on XIFAXAN for possible HE 3) pancreatitis - improving slowly, less pain today 4) lytes/renal - as per hospitalist and renal 5) withdrawal - on protocol 6) Afib - as per cardiology, for cardioversion today 7) thrombocytopenia - unclear etiology, not bleeding, doesn't appear to have hemolysis will follow 03/23/17 10:52 as above pt is doing worse with multiple organ systems involved worsening renal function, increased bili, rapid afib that is now cardioverted into NSR, hypotension requiring pressors his protime did decrease with Vit K but MDF > 32 again today - part of that maybe increased bili from worsening renal clearance unclear why his plts are so low, doubt DIC given Protime improving with Vit K, doubt HIT as I thin he only had sq heparin 1) alc hep - want sono of whole abdo with dopplers, MDF > 32 will start IV solumedrol 20mg Q8, I see CT ordered - will ask radiology if thta will answer my questions or if doppler still needed. 2) Confusion - on Xifaxan, think more form withdrawal, CT head negative 3) pancreatitis - continue current tx, improving 4) renal/lyes - as per hospitalists and renal 5) - to see for possible hinojosa 6) cardiac - in NSR today, needs pressors - as per specialist and hospitalists 7) thrombocytopenia - heme consult, repeat BCx's, CXR w/o infiltrate Subjective: cc - alc hep, alc panc, renal failure, thrombocytopenia pt says abdo less pain, still confused Objective: Vital Signs Temp Pulse Resp BP Pulse Ox 36.8 C 87 20 114/77 98 03/23/17 08:00 03/23/17 10:00 03/23/17 10:00 03/23/17 10:00 03/23/17 10:00 Laboratory Results 03/23/17 05:30 03/23/17 05:30 03/22/17 03/23/17 03/24/17 05:59 05:59 05:59 Intake Total 680 3622 Output Total 300 Balance 380 3622 PT 15.8 SEC (12.0-15.0) H 03/23/17 03:50 INR 1.26 (0.83-1.16) H 03/23/17 03:50 A+Ox2 (person and place) CTA S1S2, RRR +BS nml pitch, distended tender no r/g Laboratory Tests 03/17/17 03/18/17 03/19/17 09:07 05:40 05:41 Plt Count 91 L 73 L 83 L PT INR Total Bilirubin AST ALT Alkaline Phosphatase 03/20/17 03/21/17 03/21/17 04:37 04:45 04:45 Plt Count 83 L 44 L D PT INR Total Bilirubin 15.9 H AST 231 H ALT 108 H Alkaline Phosphatase 127 H 03/21/17 03/22/17 03/22/17 04:45 04:35 04:35 Plt Count 18 L* PT 15.1 H INR 1.19 H Total Bilirubin 16.0 H AST 157 H ALT 94 H Alkaline Phosphatase 123 03/22/17 03/23/17 03/23/17 09:30 05:30 05:30 Plt Count 7 L* PT 16.8 H INR 1.36 H Total Bilirubin 17.9 H AST 147 H ALT 79 H Alkaline Phosphatase 126 ICD10 Worksheet Patient Problems: Problems Problem Status Onset Altered mental status Acute Dehydration Acute Hyperbilirubinemia Acute Hyponatremia Acute Jaundice Acute Metabolic acidosis Acute Pancreatitis Acute Renal failure Acute Syncope Acute Thrombocytopenia Acute Transaminitis Acute
[2017-03-23] MEDS ORDERED: PANTOPRAZOLE SODIUM 40 MG in NS 100 ML IV SCH (11:00)
[2017-03-23] MEDS: THIAMINE HCL 100 MG TAB PO SCH (11:01)
[2017-03-23] MEDS: MULTIVITAMINS 1 EACH TAB PO SCH (11:01)
[2017-03-23] MEDS: FOLIC ACID 1 MG TAB PO SCH (11:01)
[2017-03-23] MEDS: POTASSIUM/SODIUM PHOSPHATE 1 PKT PO SCH (11:01)
[2017-03-23] MEDS: RIFAXIMIN 550 MG TAB PO SCH ×2 (11:06→22:14)
--- NOTE | 2017-03-23 11:11 | SOAPPROG ---
SOAP Progress Note Assessment/Plan: Assessment/Plan: LEO: likely multifactorial, could have prerenal injury, may have some component of hepatorenal syndrome but less likely, more likely had some ATN in the setting of hypotension, pancreatitis, and hepatitis. Cr initially peaked at 3.7 and improved to 1.4, now up again to 2.1 in the setting of afib with RVR requiring emergent cardioversion and again hypotension, now on phenylephrine. - No need for HD at this time, but will continue to monitor. - Will give additional albumin today, may require more fluids. - Would recommend placement of hinojosa catheter to obtain strict I/Os. - Avoid hypotension, MOM, morphine, demerol, NSAIDs, contrast, aminoglycosides , fleets, and other nephrotoxins. - Will continue to monitor. Shock: pt now on pressor, will continue to monitor. Metabolic acidosis: has an increase in his lactic acidosis, could be from his afib with RVR needing cardioversion last night. Would recommend CT scanning his abdomen today. Subjective: Pt went into afib with RVR yesterday and was emergently cardioverted yesterday evening. Overnight, he has been quite hypotensive, now in the ICU and on Dieter. Objective: Vital Signs Temp Pulse Resp BP Pulse Ox 36.8 C 87 20 87/53 L 99 03/23/17 08:00 03/23/17 11:00 03/23/17 11:00 03/23/17 11:00 03/23/17 11:00 Laboratory Results 03/23/17 05:30 03/23/17 05:30 03/22/17 03/23/17 03/24/17 05:59 05:59 05:59 Intake Total 680 3622 Output Total 300 Balance 380 3622 PT 15.8 SEC (12.0-15.0) H 03/23/17 03:50 INR 1.26 (0.83-1.16) H 03/23/17 03:50 General: somnolent but arousable, no acute distress Eyes; EOMI, PERRL, sclerae icteric CV: RRR Resp: nonlabored respirations on NC Abd: distended, tense, nontender to palpation Ext: trace edema BLE Neuro: CN II-XII grossly inact, +asterixis Psych: encephalopathic ICD10 Worksheet Patient Problems: Problems Problem Status Onset Altered mental status Acute Dehydration Acute Hyperbilirubinemia Acute Hyponatremia Acute Jaundice Acute Metabolic acidosis Acute Pancreatitis Acute Renal failure Acute Syncope Acute Thrombocytopenia Acute Transaminitis Acute
[2017-03-23] MEDS ORDERED: METHYLPREDNISOLONE SOD SUCC IV SCH (11:23)
[2017-03-23] MEDS ORDERED: D5W IV SCH (11:23)
--- NOTE | 2017-03-23 11:48 | ECHO ---
[id number] + + [address] : : [place] [address] : : [phone] + + Adult Echocardiographic Report + -------+ :Name: JASON STARR JStudy Date: 03/23/2017 10:02 AM : : Hospital Admission Number: [id number] Locati on: 252: :: 1965 Gender: Male Height: 70 in : :Age: 52 yrs Race: WH Weight: 209 lb : :Reason For Study: Atrial Fibrillation : : BSA: 2.1 meter s2 : + -------+ MMode/2D Measurements \T\ Calculations IVSd: 1.3 cm LVIDd: 4.2 cm FS: 34.0 % Ao root diam: 3.7 cm LVPWd: 0.81 cm LVIDs: 2.8 cm EDV(Teich): 78.8 ml LA dimension: 3.5 cm ESV(Teich): 28.9 ml EF(Teich): 63.3 % Normal Measurement Values: + + :LVIDd (3.5-5.7cm) IVSd (0.6-1.1cm) LVPWd (0.6-1.1cm) Aortic Root (2.0-3.7cm)Left Atrium (1.5-4.0cm): :LV Vol(d) (76-115ml) LV Vol(s) (29-48ml) Ejec Fraction (50-65%)PV Vic (0.6- 1.2m/s) TV Vic (0.4-1.0m/s) : :MV E Vic (0.8-1.0m/s)MV A Vic (0.3-1.0m/s)LVOT Vic (0.7-1.2m/s) Asc Ao Vic ( 0.9-1.8m/s) : + + Doppler Measurements \T\ Calculations MV E max vic: 54.0 cm/sec Ao V2 max: 100.4 cm/sec TR max vic: 213.1 cm/sec MV A max vic: 57.9 cm/sec Ao max P.0 mmHg TR max P.2 mmHg MV E/A: 0.93 RAP systole: 5.0 mmHg RVSP(TR): 23.2 mmHg Left Ventricle The left ventricle is normal in size. There is normal left ventricular wall thickness. Left ventricular systolic function is normal. Ejection Fraction = 60-65%. No regional wall motion abnormalities noted. Right Ventricle The right ventricle is normal in size and function. Atria The left atrial size is normal. Right atrial size is normal. The interatrial septum is intact with no evidence for an atrial septal defect. Mitral Valve The mitral valve is normal in structure and function. There is no evidence of mitral valve prolapse. There is no mitral valve stenosis. There is trace mitral regurgitation. Tricuspid Valve Normal tricuspid valve. There is trace tricuspid regurgitation. Right ventricular systolic pressure is normal. Aortic Valve The aortic valve is trileaflet. The aortic valve opens well. There is no aortic stenosis. There is no aortic insufficiency. Pulmonic Valve The pulmonic valve is normal in structure and function. There is no pulmonic valvular regurgitation. Great Vessels The aortic root is normal size. Pericardium/Pleural There is no pericardial effusion. Conclusion A complete two-dimensional transthoracic echocardiogram was performed (2D, M-mode, Doppler and color flow Doppler). The study was technically limited. Left ventricular systolic function is normal. Ejection Fraction = 60-65%. There is trace mitral regurgitation. There is trace tricuspid regurgitation. Right ventricular systolic pressure is normal. Final Reading Physician: Fili Darden signed on 03/23/2017 11:47 AM Ordering Physician: Colby Kemp Performed By: Noemi Cabezas RDCS
[2017-03-23] MEDS: methylPREDNISolone SOD SUCC 40 MG/ML VIAL IVP SCH ×2 (12:11→22:14)
--- NOTE | 2017-03-23 12:38 | SOAPPROG ---
SOAP Progress Note Assessment/Plan: Assessment: Renal failure Acute asked to see to place hinojosa, elected not to place Plan: will follow on periphery 03/23/17 12:37 Subjective: asked to see pt for hinojosa placement, pt not in room and no one available for information, returned and discussed with RN and , delay cath placement Objective: Vital Signs Temp Pulse Resp BP Pulse Ox 37.2 C 90 21 H 118/82 H 97 03/23/17 12:00 03/23/17 12:00 03/23/17 12:00 03/23/17 12:00 03/23/17 12:00 Laboratory Results 03/23/17 05:30 03/23/17 05:30 03/22/17 03/23/17 03/24/17 05:59 05:59 05:59 Intake Total 680 3622 Output Total 300 100 Balance 380 3622 -100 PT 15.8 SEC (12.0-15.0) H 03/23/17 03:50 INR 1.26 (0.83-1.16) H 03/23/17 03:50 Physical Exam - Physical Exam General Appearance: obtunded EENT: scleral icterus (R) Respiratory: No respiratory distress ICD10 Worksheet Patient Problems: Problems Problem Status Onset Altered mental status Acute Dehydration Acute Hyperbilirubinemia Acute Hyponatremia Acute Jaundice Acute Metabolic acidosis Acute Pancreatitis Acute Renal failure Acute Syncope Acute Thrombocytopenia Acute Transaminitis Acute
[2017-03-23 13:24] LABS: HEMATOCRIT 25.6 % (40.0-51.0); HEMOGLOBIN 8.7 g/dL (13.7-17.5); LIPEMIA HEMOLYSIS FLAG 90 (0-99); MEAN CELL HEMOGLOBIN 38.5 pg (27.9-34.1); MEAN CELL VOLUME 113.3 fL (81.5-99.8); PLATELET CLUMPS FLAG 0 (0-99); RED BLOOD CELL COUNT 2.26 10^6/uL (4.40-6.38); RED CELL DISTRIBUTION WIDTH 19.2 % (11.5-15.2)
[2017-03-23 13:29] LABS: PLATELET COUNT 26 10^3/uL (150-400)
[2017-03-23 13:51] LABS: PLATELET ESTIMATE DECREASED (ADEQ)
--- NOTE | 2017-03-23 14:04 | GCON ---
[f rep st] CONSULTATION REASON FOR CONSULTATION: Progressive thrombocytopenia in the setting of acute alcohol related hepat itis, liver dysfunction and pancreatitis complicated by recent atrial fibrillation and hypertension and with a history of non-Hodgkin's lymphoma, 1999. HISTORY OF PRESENT ILLNESS: The patient is a 52-year-old, white male, who has a history of non-Hodg kin's lymphoma diagnosed when living in [place] in the year 1999. His reports he was referre d from [place] to [facility] in 2001 for an allotransplant, which was successful and he h as been in remission since that time. No other details of his lymphoma or its treatment are availab le. I was not able to access our outpatient chart at the time of this dictation. Apparently, the p tony was followed briefly in our department at the [facility] by Dr. Michael Winston, with the last followup in 2010. He has had no known relapses and no further marco atment for lymphoma since 2001. The patient moved to [place] in 2003. The patient apparently has had significant binge alcohol drinking in the past several weeks, which i s difficult to quantify either from the patient or from what his is aware of. His is inte rviewed for information. She reports he has had no recent hospitalizations, no recent surgeries no evidence of bleeding at home and has no history of alcohol-related encephalopathy or complications. She is not certain my his alcohol intake recently increased. Patient was recently feeling fatigued and saw his Primary Care Provider. He was hospitalized on with progressive lethargy. He is on no identified medications at home. MEDICATIONS: Medication review from his hospital record indicates he has received: 1. Cathflo calcium gluconate. 2. Folic acid. 3. Heparin injections, but that is now held. 4. Hydromorphone. 5. Lorazepam. 6. Magnesium. 7. Solu-Medrol. 8. Ondansetron. 9. Protonix. 10. Phenylephrine (currently infusing). 11. Rifaximin. 12. Thiamine. 13. Ambien. 14. Albumin. 15. Amiodarone, now held. 16. Propofol. PRIOR SURGICAL HISTORY: Includes bilateral hip replacement in 2005. FAMILY HISTORY: Noncontributory. 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 He has n o known occupational exposure. He has had previous alcohol intake in the past and most recently, fa irly heavy of which this is hard to quantify both in terms of length of the usage or amount of usage . He does admit to vodka and beer most recently. PERTINENT REVIEW OF SYSTEMS: Notable for no symptoms of GI or blood loss. He denies symptoms of an active infection. PHYSICAL EXAMINATION: GENERAL: This is a middle aged, markedly jaundiced and icteric white male in no acute distress. He is seen in an ICU setting. He is lethargic, but easily conversant to have a nswer simple questions appropriately. He is on nasal cannula oxygen and Dieter-Synephrine pressor supp ort. HEENT: Sclerae deeply jaundiced, skin deeply jaundiced, oral mucosa intact. NECK: Supple wi thout lymph node enlargement. LUNGS: Lung lara clear anteriorly. CARDIAC EXAM: RSR: No extra h eart sounds. Heart rate in the 80s. ABDOMEN: Somewhat distended. Liver slightly enlarged. Splee n tip palpable at left costal margin. Abdomen distended, but nontender. Bowel sounds present. No rebound or guarding. EXTREMITIES: Warm and well perfused. SKIN: Deeply jaundiced. No petechiae or ecchymoses. PICC line present. Other IV sites present. LABORATORY DATA: He was admitted with a hemoglobin of 11.6, MCV 107.9, and platelet count of 73,000 with a white count of 5.82 on March 18. Progressive CBCs in the hospital show on March 19, platelet co unt of 83, on March 20 a platelet count of 83, on March 21 he had a platelet count of 44, and on March 22 he had a platelet count of 18,000. Today, he has a platelet count of 7000. His hemoglobin as of morning was 9.6, his white count is 8.92. His differential count is noted. He has demonstrated metamyelocytes and nucleated red cells in the fairly high number through his hospital course. On ad , his protime was 15.2 with an APTT of 28, today's protime is 15.8. Today, his BUN is 45, cr eatinine 2.1. He has a calcium of 5.9, total bilirubin of 17.9, conjugated bilirubin of 16.3, ALT 7 9, AST 147, albumin 2.4, alkaline phosphatase 126. IMPRESSION: Marked thrombocytopenia in the setting of remote history of non-Hodgkin's lymphoma nathaly hernandez in 1999, last treated in 2001 without known relapse or complications of previous treatment, no w with marked impairment in platelet production and/or consumption and possibly platelet antibodies related to heparin use based upon clinical scenario with acute drop in his platelet count below 10,0 00. He probably has a degree of myelosuppression related to alcohol liver disease and his acute deg ree of illness. He has no evidence of bleeding. He is at high risk of bleeding, based upon severe thrombocytopenia and the stress of his acute illness. He will need platelet support for his profoun dly low platelet count and will need to be monitored carefully for evidence of bleeding. He will contreras ve an HIT panel obtained and I will obtain fibrinogen. I think the patient should have heparin with held obviously both from the risk of bleeding given his low platelet count and the possibility this is an etiologic agent in his thrombocytopenia. Orders have been written. Our service will follow. Thank you for allowing our service to see this patient. /[id number]/MODL
--- NOTE | 2017-03-23 15:07 | WOCRNPDOC ---
WOCRN Advanced Assessment Note - Skin Integrity Problem, Advanced Assess Sacrum Pressure Injury Dressing Type: Open to Air Exudate Amount: None Integumentary Issue Intervention: Dressing Applied, Dressing Initialed & Dated Kathryn Wound Tissue: Intact Kathryn Wound Swelling: None Site Odor: None Site Measurement - Head-to-Toe Length X Width X Depth (cm): upper left = 0.4 cm serina x 0. lower left = 0.3 cm serina x 0. upper right = 0.3 cm serina x 0. lower right = 0.3 cm serina x 0 Pressure Injury Stage: Deep Tissue Injury (DTI) Pressure Injury Present on Admit: No Skin Integrity Problem Comment: Two pairs of symmetrical, bilaterally positioned small, intact purple, non-blanching sites are immediately adjacent to distal sacral region, approx 3-4 cm above coccyx. Per report of CATHY Vidal, patient has been restless in bed, demonstrating difficulty in maintaining pressure off-loading in side-lying positions. Discussed placement of TAPS, in addition to already-initiated turn schedule. Placed protective sacrum dressing; discussed skin integrity care with . Wound Care will follow up on , 03/30.
[2017-03-23] MEDS: DEXMEDETOMIDINE HCL 400 MCG in NS 100 ML IV SCH (16:08)
[2017-03-23 16:44] LABS: ANION GAP 15 mEq/L (8-16); CALCIUM 6.4 mg/dL (8.5-10.4); CARBON DIOXIDE 16 mEq/l (22-31); CHLORIDE 102 mEq/L (97-110); CREATININE 1.8 mg/dL (0.7-1.3); GLOMERULAR FILTRATION RATE 40; GLUCOSE 122 mg/dL (70-100); POTASSIUM 4.4 mEq/L (3.5-5.2); SODIUM 133 mEq/L (134-144)
[2017-03-23] MEDS ORDERED: LORazepam 2 MG/ML INJ IVP PRN (18:33)
--- NOTE | 2017-03-23 20:50 | GCON ---
[f rep st] CONSULTATION DATE OF CONSULTATION: 03/23/2017 I have been asked to see this patient for catheter placement. I have reviewed his chart note and imaging studies, and history, and I am unclear on the reason for need for the catheterization. He has been attempted catheterization for a urine sample several time s in the morning, and successful by the nursing staff. His platelet count was 7000, and has bumped up to 20,000, and he is voiding spontaneously. At the present time I have elected not to place a ca theter, we will see how he does and check on him tomorrow morning. HISTORY: This is a gentleman who was admitted for evaluation of confusion, difficulty in speech, an d the impression was that he had hepatitis, pancreatitis, hepatorenal syndrome, and confusion. He h as had non-Hodgkin's lymphoma diagnosed in 1999, treated with chemotherapy, followed by stem cell tr ansplant in 2000, been in remission, and he has also had alcoholism. FAMILY HISTORY: Noncontributory except for genitourinary disease. SOCIAL HISTORY: . Talked with his , and they have three children, a 17-year-old son and two 10-year-old daughters. MEDICATIONS: I have reviewed his medication list. PHYSICAL EXAMINATION: GENERAL: He is lying in bed, somewhat confused and restrained. Some jaundic e is noted. ABDOMEN: Mildly distended. GENITOURINARY: I did not perform a genitourinary exam bec ause of his condition. LABORATORY DATA: His laboratory values have been reviewed. He had a lipase greater than 3000, and the platelets were low as noted. He had a CAT scan of the abdomen today, and the CAT scan revealed extensive hepatic steatosis, hepat omegaly and borderline splenomegaly, mild dilation of small bowel loops, with gas of indeterminate o rigin in the tail of the pancreas to the spleen, and he had moderate inflammation of the pancreas co mpatible with his pancreatitis. He had no renal obstruction. He did have a 1 mm nonobstructing aliyah culus in the right lower pole of the kidney, and the bladder was not visualized well because of his artificial hip replacement. At the present time, once again, I have elected not to place a catheter because of low platelets and potential risk of bleeding, and the patient is voiding spontaneously into a diaper. I will follow up with him tomorrow. /[id number]/MODL
[2017-03-23 22:42] LABS: COLOR AMBER; LEUKOCYTE ESTERASE,URINE NEGATIVE (NEGATIVE); NITRITE,URINE NEGATIVE (NEGATIVE)
[2017-03-23 22:44] LABS: AMORPHOUS PRESENT /hpf (NONE-1+); BACTERIA TRACE /hpf (NONE SEEN); MUCUS TRACE /lpf (NONE-1+)
[2017-03-24 00:06] VITALS: TEMP 100
[2017-03-24 00:40] LABS: BASE EXCESS -11.3 mEq/L (-2.5-2.5); BICARBONATE 16 mEq/L (22-26); MEASURED OXYGEN SATURATION 96 % (92-95); PCO2 41 mmHg (34-38); PO2 103 mmHg (65-75); TCO2 17 mEq/L (23-27)
[2017-03-24 00:41] LABS: O2 CONCENTRATIION 100 % (0-100); P/F RATIO 103 RATIO
[2017-03-24 00:42] LABS: EXP PRESSURE 7; INSP PRESSURE 14
[2017-03-24] MEDS: DEXMEDETOMIDINE HCL 400 MCG in NS 100 ML IV SCH (00:44)
[2017-03-24] MEDS ORDERED: ERTAPENEM 1 GM in NS 100 ML IV SCH (01:00)
[2017-03-24] MEDS ORDERED: NOREPINEPHRINE/NS 4 MG/500 ML BAG IV ONE (01:17)
[2017-03-24] MEDS ORDERED: NOREPINEPHRINE/NS 500 ML IV SCH (01:30)
[2017-03-24] MEDS ORDERED: NOREPINEPHRINE BITARTRATE 4 MG in D5W 500 ML IV SCH (01:30)
[2017-03-24] MEDS ORDERED: ETOMIDATE 40 MG/20 ML INJ ONE (01:41)
[2017-03-24] MEDS ORDERED: SUCCINYLCHOLINE CHLORIDE*ANESTHESIA ONLY*200 MG/10 ML SYR IVP ONE ×2 (01:41→02:00)
[2017-03-24] MEDS ORDERED: ETOMIDATE 40 MG/20 ML INJ IV ONE (01:45)
--- NOTE | 2017-03-24 02:05 | EDPHY ---
Inpatient Procedure Narrative: Reason for Consult: Respiratory failure. 0201 AM: I was asked by the hospitalist service to come and see and evaluate this patient who seems to be failing BiPAP and having worsening mentation concerning for hypoxic respiratory failure. Upon my evaluation the patient was on BiPAP he was minimally responsive he seems very confused, agitated, pulling at restraints, not following commands. Due to this patient's decreased mentation, and failing on BiPAP, heading towards respiratory failure decision was made to intubate this patient for respiratory failure and airway protection. It is noted this patient's chest x-ray does show pneumonia right-sided, he does appear septic to me, he is on vasopressors he does have a PICC line and is failing BiPAP. Reason for emergent intubation: Hypoxic respiratory failure, increasing agitation, confusion. This patient was into by myself with direct visualization of the cords with the glide scope. A 7.5 endotracheal tube was passed with 1 attempt through the cords. The tube was confirmed placement with chest x-ray however he had good end-tidal capnography, good air movement bilaterally, and there was a humidified ETT. The patient was given RSI medications including 20 mg of etomidate and 120 mg of succinylcholine. Was pre oxygenated with BiPAP with FiO2 100% his oxygen saturation during intubation never dropped below 98%. There were no complications during into patient he tolerated this well. Critical Care: Total Critical Care Time Spent Managing this Patient: 30Minutes. This time was spent Exclusively with this patient. This Care was exclusive of procedures. The Organ System/life at risk was respiratory This Patient was in Critical Condition because fluid sepsis, hypoxic respiratory failure, pneumonia, liver failure. ED x-ray chest one view: This shows initially deep position of the endotracheal tube at the svetlnaa. The tube was removed back 2 cm by respiratory. Repeat x-ray shows appropriate to position. No pneumothorax. Infiltrate right lung.
--- NOTE | 2017-03-24 02:09 | HOSPPROG ---
Hospitalist Progress Note Assessment/Plan: CROSS COVERAGE EVENT NOTE RN paged due to tachypnea, tachycardia and hypoxia with increasing O2 requirement (from 5L NC to 50% face tent, with saturations remaining in the 80% range). On my assessment, patient was encephalopathic and lethargic, unable to follow commands or provide a strong cough and was using all accessory muscles of respiration. At this time, portable CXR was obtained and revealed a worsening RUL infiltrate, concerning for an aspiration event or new pneumonia. He was given a short trial on BIPAP, with improvement in O2 saturation, however , had no improvement in significant work of breathing or tachypnea. Per RN and RT, suction was attempted several times without obvious gag or evidence of adequate airway protection. Suction did reveal bloody secretions. Given this, decision was made to proceed with intubation for hypoxic respiratory failure as well as for airway protection. Gen: obtunded, jaundiced HEENT: poor gag/cough reflex; dry mm, icteric sclera Neck: supple, no jvd CV: tachycardia, regular, no obvious murmurs Resp: diffuse rhonchi bilaterally; accessory muscle use; tachypnea Abd: +BS, distended but not tense, not obviously tender Ext: trace pedal edema Neuro: obtunded, not following commands, moving all extremities equally Labs: AB.21 / 41 / 103 / 17 / 96 Lactic acid: 1.9 CXR: new R upper and R lower lobe infiltrates Micro: e coli x 4 bottles (03/23/2017 set) Imp/Plan: Patient is a 52 year old male who was admitted on 03/18 with alcoholic hepatitis , pancreatitis and hepatic encephalopathy. Hospital course has been complicated by new onset Afib with rvr, severe thrombocytopenia and worsening acute liver failure. On 03/22 into 03/23, patient also developed hypotension, initially of unclear etiology, but cultures have now revealed E coli bacteremia, so likely due to septic shock. Now, patient has also developed acute hypoxic respiratory failure, likely from an acute aspiration event vs new pneumonia. # acute respiratory failure As described above, has required urgent intubation tonight due to both hypoxic respiratory failure and loss of airway protection. Based on tonight initial CXR , patient has new RUL and RLL infiltrate, concerning for an aspiration event at some point in the past 12 hours. # shock Given the positive culture results, relatively normal TTE from today, this is likely septic shock, although lactic acid is not significantly elevated. Switched phenylephrine to norepinephrine, will add vasopressin given increased Levophed requirements. Ertapenem initiated for bacteremia. # multiorgan failure Patient with continuing acute encephalopathy, acute renal failure, acute liver failure. Will repeat all labs now to assess need for electrolyte replacement, transfusion and continue previous management per day team. [employer] has been consulted as well. Kaitlin Reveles, Objective: Vital Signs Temp Pulse Resp BP Pulse Ox 37.8 C 95 26 H 93/55 L 98 03/24/17 00:00 03/24/17 00:52 03/24/17 00:52 03/24/17 00:45 03/24/17 00:52 Laboratory Results 03/23/17 13:10 03/23/17 16:15 03/22/17 03/23/17 03/24/17 05:59 05:59 05:59 Intake Total 680 3622 306 Output Total 300 250 Balance 380 3622 56 PT 15.8 SEC (12.0-15.0) H 03/23/17 03:50 INR 1.26 (0.83-1.16) H 03/23/17 03:50 - Time Spent With Patient Time Spent with Patient: greater than 25 minutes (critical care time) Time Spent with Patient: Greater than 25 minutes spent on this patients care, greater than 50% of time spent counseling, educating, and coordinating care regarding the above mentioned plan. ICD10 Worksheet Patient Problems: Problems Problem Status Onset Dehydration Acute Altered mental status Acute Syncope Acute Jaundice Acute Thrombocytopenia Acute Hyperbilirubinemia Acute Transaminitis Acute Hyponatremia Acute Renal failure Acute Pancreatitis Acute Metabolic acidosis Acute
[2017-03-24] MEDS ORDERED: SODIUM BICARBONATE 50 MEQ/50 ML SYR IVP ONE ×3 (02:38→03:16)
[2017-03-24] MEDS ORDERED: SODIUM BICARBONATE 50 MEQ/50 ML SYR ONE (02:39)
[2017-03-24] MEDS ORDERED: VASOPRESSIN/DEXTROSE 250 ML IV SCH (02:43)
[2017-03-24 03:05] LABS: BASE EXCESS -11.9 mEq/L (-2.5-2.5); BICARBONATE 17 mEq/L (22-26); MEASURED OXYGEN SATURATION 86 % (92-95); PCO2 56 mmHg (34-38); PO2 69 mmHg (65-75); TCO2 19 mEq/L (23-27)
[2017-03-24 03:13] LABS: END TIDAL CO2 44
[2017-03-24 03:13] LABS: HEMATOCRIT 30.1 % (40.0-51.0); HEMOGLOBIN 10.2 g/dL (13.7-17.5); LIPEMIA HEMOLYSIS FLAG 90 (0-99); MEAN CELL HEMOGLOBIN 38.9 pg (27.9-34.1); MEAN CELL HEMOGLOBIN CONCENTR. 33.9 g/dL (32.4-36.7); MEAN CELL VOLUME 114.9 fL (81.5-99.8); PLATELET CLUMPS FLAG 0 (0-99); RED BLOOD CELL COUNT 2.62 10^6/uL (4.40-6.38); RED CELL DISTRIBUTION WIDTH 19.8 % (11.5-15.2)
[2017-03-24 03:14] LABS: O2 CONCENTRATIION 100 % (0-100); P/F RATIO 69 RATIO; PRESSURE SUPPORT 7; SIMV YES
[2017-03-24] MEDS ORDERED: NS 500 ML IV ONE (03:15)
[2017-03-24 03:17] LABS: PLATELET COUNT 13 10^3/uL (150-400)
[2017-03-24 03:21] LABS: INR 1.25 (0.83-1.16); PROTIME(PATIENT) 15.7 SEC (12.0-15.0)
[2017-03-24 03:23] LABS: FIBRINOGEN 745 mg/dL (214-456)
[2017-03-24] MEDS ORDERED: ALBUMIN 25% 50 ML IV ONE (03:24)
[2017-03-24] MEDS ORDERED: NOREPINEPHRINE BITARTRATE 16 MG in NS 250 ML IV SCH (03:30)
[2017-03-24] MEDS ORDERED: ALBUMIN 25% 50 ML SOLN IV ONE (03:35)
[2017-03-24 03:43] LABS: ANION GAP 13 mEq/L (8-16); CARBON DIOXIDE 19 mEq/l (22-31); CHLORIDE 105 mEq/L (97-110); CREATININE 2.1 mg/dL (0.7-1.3); GLOMERULAR FILTRATION RATE 34; GLUCOSE 133 mg/dL (70-100); POTASSIUM 5.1 mEq/L (3.5-5.2); SODIUM 137 mEq/L (134-144)
[2017-03-24 03:53] LABS: CALCIUM 5.9 mg/dL (8.5-10.4)
[2017-03-24 04:01] LABS: PLATELET ESTIMATE DECREASED (ADEQ)
[2017-03-24 04:51] VITALS: BP 0/0; PULSE 0; RESP 0; O2SAT 0
[2017-03-24 05:12] LABS: IONIZED CALCIUM 0.97 MMOL/L (1.12-1.30)
[2017-03-24 06:53] LABS: PLATELET COUNT 13 10^3/uL (150-400)
--- NOTE | 2017-03-24 08:01 | PDDCSUM ---
Discharge Summary Discharge Summary: Note Over the course of the night, patient developed acute respiratory failure and progressive shock. He was intubated and was difficult to ventilate, despite increasing PEEP, FiO2 100%. Shock required increased pressor support, eventually on maximum doses of levophed, vasopressin and also initiated on epinephrine. Despite this, patient continued to decompensate. I suspect this acute deterioration in status was related to septic shock with resulting ARDS due to E. coli bacteremia in a patient with poor status prior to acute infection. Patient's was at bedside throughout his deterioration, called in his children and her sister for further family support. Once all family had arrived, patient began to become bradycardic and eventually asystolic. Time of was pronounced at 4:10 am with family at bedside. Geology Faculty Member also called in in support of family.
--- NOTE | 2017-03-24 10:48 | ECHO ---
[id number] + + [address] : : [place] [address] : : [phone] + + Transesophageal Echocardiographic Report + + :Name: JASON STARR Study Date: 03/22/2017 04:06 PM : : Hospital Admission Number: [id number] : :: 1965 Gender: Male : :Age: 52 yrs Race: WH : :Reason For Study: Eval LV Fx : :History: New onset A-fib : + + Left Ventricle The left ventricular ejection fraction is normal. The rhythm is atrial fibrillation. Atria No left atrial mass or thrombus visualized. No thrombus is detected in the left atrial appendage. Conclusion A 2D transesophageal echocardiogram with color flow Doppler was performed. The left ventricular ejection fraction is normal. No left atrial mass or thrombus visualized. No thrombus is detected in the left atrial appendage. Proceeded with successful elective DC cardioversion. Final Reading Physician: Fili Darden signed on 03/24/2017 10:46 AM Ordering Physician: Colby Kemp Performed By: Scotty Wilson MD
[2017-03-24 19:01] LABS: HEPARIN INDUCED ANTIBODY Negative (Negative); HEPARIN-PF4 IgG ANTIBODY ELISA < 0.075 OD (<0.400)
== END 2017-03-24 04:10 | disposition expired | DRG 438 ==
LOC: F3E 13:20 → F2N 03-22 14:25
PROVIDERS: ADMIT Internal Medicine; ATTEND Internal Medicine
PROC: 5A2204Z Restoration of Cardiac Rhythm, Single (ICD-10-PCS; principal; 2017-03-22)
PROC: B246ZZ4 Ultrasonography of Right and Left Heart, Transesophageal (ICD-10-PCS; principal; 2017-03-22)
PROC: 02HV33Z Insertion of Infusion Device into Superior Vena Cava, Percutaneous Approach (ICD-10-PCS; 2017-03-23)
PROC: 5A1935Z Respiratory Ventilation, Less than 24 Consecutive Hours (ICD-10-PCS; 2017-03-24)
PROC: 0BH17EZ Insertion of Endotracheal Airway into Trachea, Via Natural or Artificial Opening (ICD-10-PCS; 2017-03-24)
DX: K85.20 Alcohol induced acute pancreatitis without necrosis or infection (principal); K70.11 Alcoholic hepatitis with ascites; K70.40 Alcoholic hepatic failure without coma; J96.01 Acute respiratory failure with hypoxia; A41.51 Sepsis due to Escherichia coli [E. coli]; R65.21 Severe sepsis with septic shock; N17.9 Acute kidney failure, unspecified; F10.239 Alcohol dependence with withdrawal, unspecified; G31.2 Degeneration of nervous system due to alcohol; E87.6 Hypokalemia; E83.42 Hypomagnesemia; E83.39 Other disorders of phosphorus metabolism; D69.6 Thrombocytopenia, unspecified; I48.91 Unspecified atrial fibrillation; I95.9 Hypotension, unspecified; Z85.72 Personal history of non-Hodgkin lymphomas; Z94.84 Stem cells transplant status; Z96.649 Presence of unspecified artificial hip joint
CPT/HCPCS: 86022-90; 86709-90; 96374; 97110-GP; 97116-GP; 97161-GP; 97165-GO; 97530-GO; 97535-GO; C1751; G0472; J0171; J0282; J0330; J0610; J1335; J2060; J2370; J2405; J2704; J2930; J3411; J3430; J3475; P9035; P9047; Q9967